=== PATIENT | female | born 1960 | race Caucasian/White ===

== ENCOUNTER 2018-05-07 15:49 | Emergency (ER) | payer BC, OTHER ==
[2018-05-07 15:57] VITALS: RESP 20
[2018-05-07] MEDS ORDERED: ONDANSETRON 4 MG/2 ML VIAL IVP STA ×2 (16:05→17:56)
[2018-05-07] MEDS ORDERED: MORPHINE SULFATE 4 MG/ML SYRINGE IV STA (16:05)
[2018-05-07] MEDS ORDERED: SODIUM CHLORIDE 0.9% 1,000 ML IV STA ×2 (16:05)
[2018-05-07] MEDS ORDERED: SODIUM CHLORIDE 0.9% 500 ML 500 ML IV STA (16:05)
--- NOTE | 2018-05-07 16:08 | ED ---
Abdominal Pain HPI - General Chief Complaint: Abdominal Pain Stated Complaint: back pain/vomiting Time Seen by Provider: 05/07/18 16:05 Source: patient, RN notes reviewed, old records reviewed Mode of arrival: ambulatory Limitations: no limitations - History of Present Illness Initial Comments: This is a 58-year-old female the ER for evaluation. Patient resents today for evaluation of abdominal pain back pain and vomiting. No diarrhea. No fevers no cough or congestion no travel history no known sick contacts. Patient did recently have surgery on her left wrist. Denies any fevers. No other known sick contacts. She is taking pain medication at home for sinuses and unable to keep it down secondary to the nauseousness. No other history of surgery on the abdomen is stones. - Related Data Home Medications Medication Instructions Recorded Confirmed HYDROcodone/APAP 10-325MG [Hinkley 1 tab PO Q6H PRN 05/07/18 05/07/18 10-325] Levothyroxine Sodium [Synthroid] 50 mcg PO DAILY 05/07/18 05/07/18 Meloxicam [Mobic] 15 mg PO DAILY 05/07/18 05/07/18 buPROPion HCL [Wellbutrin XL] 300 mg PO DAILY 05/07/18 05/07/18 Previous Rx's Medication Instructions Recorded Ondansetron Odt [Zofran ODT] 4 mg PO Q8HR PRN #10 tab 05/07/18 Allergies Allergy/AdvReac Type Severity Reaction Status Date / Time No Known Allergies Allergy Verified 05/07/18 16:45 Review of Systems ROS Statement: Those systems with pertinent positive or pertinent negative responses have been documented in the HPI. ROS Other: All systems not noted in ROS Statement are negative. Past Medical History Past Medical History: No Reported History History of Any Multi-Drug Resistant Organisms: None Reported Past Surgical History: Back Surgery Additional Past Surgical History / Comment(s): hand surgery. Past Psychological History: No Psychological Hx Reported Smoking Status: Never smoker Past Alcohol Use History: None Reported Past Drug Use History: None Reported General Exam Limitations: no limitations General appearance: alert, in no apparent distress Head exam: Present: atraumatic, normocephalic, normal inspection Eye exam: Present: normal appearance, PERRL, EOMI. Absent: scleral icterus, conjunctival injection, periorbital swelling ENT exam: Present: normal exam, mucous membranes moist Neck exam: Present: normal inspection. Absent: tenderness, meningismus, lymphadenopathy Respiratory exam: Present: normal lung sounds bilaterally. Absent: respiratory distress, wheezes, rales, rhonchi, stridor Cardiovascular Exam: Present: regular rate, normal rhythm, normal heart sounds. Absent: systolic murmur, diastolic murmur, rubs, gallop, clicks GI/Abdominal exam: Present: soft, normal bowel sounds. Absent: distended, tenderness, guarding, rebound, rigid Extremities exam: Present: normal inspection, full ROM, normal capillary refill. Absent: tenderness, pedal edema, joint swelling, calf tenderness Back exam: Present: normal inspection Neurological exam: Present: alert, oriented X3, CN II-XII intact Psychiatric exam: Present: normal affect, normal mood Skin exam: Present: warm, dry, intact, normal color. Absent: rash Course Vital Signs 05/07/18 05/07/18 05/07/18 15:52 16:56 18:00 Temperature 97.8 F 98.3 F Pulse Rate 85 88 55 L Respiratory 20 20 20 Rate Blood Pressure 106/71 135/73 153/82 O2 Sat by Pulse 99 99 99 Oximetry 05/07/18 19:00 Temperature 98.1 F Pulse Rate 61 Respiratory 20 Rate Blood Pressure 149/82 O2 Sat by Pulse 97 Oximetry - Reevaluation(s) Reevaluation #1: Medical record is reviewed Patient does have adequate pain control Medical Decision Making - Medical Decision Making 58 female the ER for evaluation, this patient presents today for evaluation regarding nausea or vomiting. Nausea vomiting is improved currently, pain is controlled. Patient can be discharged home - Lab Data Result diagrams: 05/07/18 16:20 05/07/18 16:20 Lab Results 05/07/18 05/07/18 05/07/18 Range/Units 16:20 16:20 16:20 WBC 5.9 (3.8-10.6) k/uL RBC 5.11 (3.80-5.40) m/uL Hgb 13.8 (11.4-16.0) gm/dL Hct 42.9 (34.0-46.0) % MCV 84.1 (80.0-100.0) fL MCH 27.1 (25.0-35.0) pg MCHC 32.2 (31.0-37.0) g/dL RDW 13.2 (11.5-15.5) % Plt Count 336 (150-450) k/uL Neutrophils % 75 % Lymphocytes % 16 % Monocytes % 5 % Eosinophils % 1 % Basophils % 1 % Neutrophils # 4.4 (1.3-7.7) k/uL Lymphocytes # 1.0 (1.0-4.8) k/uL Monocytes # 0.3 (0-1.0) k/uL Eosinophils # 0.0 (0-0.7) k/uL Basophils # 0.0 (0-0.2) k/uL PT (9.0-12.0) sec INR (<1.2) APTT (22.0-30.0) sec Sodium 137 (137-145) mmol/L Potassium 3.7 (3.5-5.1) mmol/L Chloride 104 (98-107) mmol/L Carbon Dioxide 21 L (22-30) mmol/L Anion Gap 12 mmol/L BUN 22 H (7-17) mg/dL Creatinine 0.56 (0.52-1.04) mg/dL Est GFR (CKD-EPI)AfAm >90 (>60 ml/min/1.73 sqM) Est GFR (CKD-EPI)NonAf >90 (>60 ml/min/1.73 sqM) Glucose 165 H (74-99) mg/dL Lactic Ac Sepsis Rflx Plasma Lactic Acid Kevin 2.2 H* (0.7-2.0) mmol/L Calcium 10.6 H (8.4-10.2) mg/dL Total Bilirubin 1.2 (0.2-1.3) mg/dL AST 23 (14-36) U/L ALT 36 (9-52) U/L Alkaline Phosphatase 116 (38-126) U/L Total Protein 7.9 (6.3-8.2) g/dL Albumin 4.6 (3.5-5.0) g/dL Amylase 86 (30-110) U/L Lipase 115 (23-300) U/L Urine Color Urine Appearance (Clear) Urine pH (5.0-8.0) Ur Specific [place] (1.001-1.035) Urine Protein (Negative) Urine Glucose (UA) (Negative) Urine Ketones (Negative) Urine Blood (Negative) Urine Nitrite (Negative) Urine Bilirubin (Negative) Urine Urobilinogen (<2.0) mg/dL Ur Leukocyte Esterase (Negative) Urine WBC (0-5) /hpf Ur Squamous Epith Cells (0-4) /hpf Urine Mucus (None) /hpf Blood Type Blood Type Confirm Blood Type Recheck Antibody Screen Spec Expiration Date 05/07/18 05/07/18 05/07/18 Range/Units 16:20 16:20 16:30 WBC (3.8-10.6) k/uL RBC (3.80-5.40) m/uL Hgb (11.4-16.0) gm/dL Hct (34.0-46.0) % MCV (80.0-100.0) fL MCH (25.0-35.0) pg MCHC (31.0-37.0) g/dL RDW (11.5-15.5) % Plt Count (150-450) k/uL Neutrophils % % Lymphocytes % % Monocytes % % Eosinophils % % Basophils % % Neutrophils # (1.3-7.7) k/uL Lymphocytes # (1.0-4.8) k/uL Monocytes # (0-1.0) k/uL Eosinophils # (0-0.7) k/uL Basophils # (0-0.2) k/uL PT 10.2 (9.0-12.0) sec INR 1.0 (<1.2) APTT 22.3 (22.0-30.0) sec Sodium (137-145) mmol/L Potassium (3.5-5.1) mmol/L Chloride (98-107) mmol/L Carbon Dioxide (22-30) mmol/L Anion Gap mmol/L BUN (7-17) mg/dL Creatinine (0.52-1.04) mg/dL Est GFR (CKD-EPI)AfAm (>60 ml/min/1.73 sqM) Est GFR (CKD-EPI)NonAf (>60 ml/min/1.73 sqM) Glucose (74-99) mg/dL Lactic Ac Sepsis Rflx Plasma Lactic Acid Kevin (0.7-2.0) mmol/L Calcium (8.4-10.2) mg/dL Total Bilirubin (0.2-1.3) mg/dL AST (14-36) U/L ALT (9-52) U/L Alkaline Phosphatase (38-126) U/L Total Protein (6.3-8.2) g/dL Albumin (3.5-5.0) g/dL Amylase (30-110) U/L Lipase (23-300) U/L Urine Color Yellow Urine Appearance Cloudy H (Clear) Urine pH 8.5 H (5.0-8.0) Ur Specific [place] 1.015 (1.001-1.035) Urine Protein 2+ H (Negative) Urine Glucose (UA) Negative (Negative) Urine Ketones 2+ H (Negative) Urine Blood Negative (Negative) Urine Nitrite Negative (Negative) Urine Bilirubin Negative (Negative) Urine Urobilinogen <2.0 (<2.0) mg/dL Ur Leukocyte Esterase Negative (Negative) Urine WBC 4 (0-5) /hpf Ur Squamous Epith Cells 24 H (0-4) /hpf Urine Mucus Many H (None) /hpf Blood Type O Positive Blood Type Confirm Blood Type Recheck CABO Indicated Antibody Screen NEGATIVE Spec Expiration Date 05/10/2018231905/07/18 05/07/18 Range/Units 16:56 17:21 WBC (3.8-10.6) k/uL RBC (3.80-5.40) m/uL Hgb (11.4-16.0) gm/dL Hct (34.0-46.0) % MCV (80.0-100.0) fL MCH (25.0-35.0) pg MCHC (31.0-37.0) g/dL RDW (11.5-15.5) % Plt Count (150-450) k/uL Neutrophils % % Lymphocytes % % Monocytes % % Eosinophils % % Basophils % % Neutrophils # (1.3-7.7) k/uL Lymphocytes # (1.0-4.8) k/uL Monocytes # (0-1.0) k/uL Eosinophils # (0-0.7) k/uL Basophils # (0-0.2) k/uL PT (9.0-12.0) sec INR (<1.2) APTT (22.0-30.0) sec Sodium (137-145) mmol/L Potassium (3.5-5.1) mmol/L Chloride (98-107) mmol/L Carbon Dioxide (22-30) mmol/L Anion Gap mmol/L BUN (7-17) mg/dL Creatinine (0.52-1.04) mg/dL Est GFR (CKD-EPI)AfAm (>60 ml/min/1.73 sqM) Est GFR (CKD-EPI)NonAf (>60 ml/min/1.73 sqM) Glucose (74-99) mg/dL Lactic Ac Sepsis Rflx Y Plasma Lactic Acid Kevin (0.7-2.0) mmol/L Calcium (8.4-10.2) mg/dL Total Bilirubin (0.2-1.3) mg/dL AST (14-36) U/L ALT (9-52) U/L Alkaline Phosphatase (38-126) U/L Total Protein (6.3-8.2) g/dL Albumin (3.5-5.0) g/dL Amylase (30-110) U/L Lipase (23-300) U/L Urine Color Urine Appearance (Clear) Urine pH (5.0-8.0) Ur Specific [place] (1.001-1.035) Urine Protein (Negative) Urine Glucose (UA) (Negative) Urine Ketones (Negative) Urine Blood (Negative) Urine Nitrite (Negative) Urine Bilirubin (Negative) Urine Urobilinogen (<2.0) mg/dL Ur Leukocyte Esterase (Negative) Urine WBC (0-5) /hpf Ur Squamous Epith Cells (0-4) /hpf Urine Mucus (None) /hpf Blood Type Blood Type Confirm O Positive Blood Type Recheck Antibody Screen Spec Expiration Date - Radiology Data Radiology results: report reviewed (CT abdomen pelvis is negative for acute disease), image reviewed Disposition Clinical Impression: Abdominal pain Disposition: HOME SELF-CARE Condition: Good Instructions (If sedation given, give patient instructions): Abdominal Pain (ED ) Prescriptions: Ondansetron Odt [Zofran ODT] 4 mg PO Q8HR PRN #10 tab PRN Reason: nausea/vomiting Is patient prescribed a controlled substance at d/c from ED?: No Referrals: Erick Bruce DO [Primary Care Provider] - 1-2 days
[2018-05-07 16:39] LABS: Basophils % (A) 1 %; Eosinophils % (A) 1 %; HCT 42.9 % (34.0-46.0); HGB 13.8 gm/dL (11.4-16.0); Lymphocytes % (A) 16 %; MCH 27.1 pg (25.0-35.0); MCHC 32.2 g/dL (31.0-37.0); MCV 84.1 fL (80.0-100.0); Mean Platelet Volume 6.9; Monocytes # (A) 0.3 k/uL (0-1.0); Monocytes % (A) 5 %; Neutrophils # (A) 4.4 k/uL (1.3-7.7); Neutrophils % (A) 75 %; Platelet Count 336 k/uL (150-450); RBC 5.11 m/uL (3.80-5.40); RDW 13.2 % (11.5-15.5); WBC 5.9 k/uL (3.8-10.6)
[2018-05-07 16:46] LABS: ALT 36 U/L (9-52); AST 23 U/L (14-36); Albumin 4.6 g/dL (3.5-5.0); Alkaline Phosphatase 116 U/L (38-126); Amylase 86 U/L (30-110); Anion Gap 12 mmol/L; Blood Urea Nitrogen 22 mg/dL (7-17); Calcium 10.6 mg/dL (8.4-10.2); Carbon Dioxide 21 mmol/L (22-30); Chloride 104 mmol/L (98-107); Glucose 165 mg/dL (74-99); Lipase 115 U/L (23-300); Potassium 3.7 mmol/L (3.5-5.1); Sodium 137 mmol/L (137-145); Total Bilirubin 1.2 mg/dL (0.2-1.3); Total Protein 7.9 g/dL (6.3-8.2)
[2018-05-07 16:51] LABS: Partial Thromboplastin Time 22.3 sec (22.0-30.0); Prothrombin Time 10.2 sec (9.0-12.0)
[2018-05-07 17:08] LABS: Appearance,Urine Cloudy (Clear); Bilirubin,Urine Negative (Negative); Blood,Urine Negative (Negative); Color,Urine Yellow; Glucose,Urine (UA) Negative (Negative); Ketones,Urine 2+ (Negative); Leukocyte Esterase,Urine Negative (Negative); Mucus,Urine Many /hpf; Nitrite,Urine Negative (Negative); PH, Urine 8.5 (5.0-8.0); Protein,Urine 2+ (Negative); Specific Gravity,Urine 1.015 (1.001-1.035); Squamous Epithelial Cell,Urine 24 /hpf (0-4); Urobilinogen,Urine <2.0 mg/dL (<2.0); WBC,Urine 4 /hpf (0-5)
--- NOTE | 2018-05-07 17:25 | CT ---
EXAMINATION TYPE: CT abdomen pelvis w con DATE OF EXAM: 05/07/2018 COMPARISON: None HISTORY: LLQ pain, nausea, vomiting. CT DLP: 496.2 mGycm Automated exposure control for dose reduction was used. TECHNIQUE: Helical acquisition of images was performed from the lung bases through the pelvis. CONTRAST: Performed without Oral Contrast and with IV Contrast, patient injected with 100 mL of Isovue 300. Lung bases are clear of consolidation. There is no pleural effusion. There is small hiatal hernia. Th ere are clips at the gastroesophageal junction. Heart size is normal. There is no pericardial effusio n. Gallbladder has normal size. The bile ducts are not dilated. There is no evidence of a splenic mas s. There is no evidence of pancreatic mass. There is no adrenal mass. Kidneys show satisfactory contrast opacification. There is no hydronephrosi s. There is no retroperitoneal adenopathy. There is disc prosthesis at L5-S1. I see no focal bone eden truction. Bladder distends smoothly. There is no free fluid in the pelvis. There is no evidence of fr ee air. There is no inguinal hernia. There is no sign of a pelvic mass. Hysterectomy is noted. There is no sign of ascites. There is no evidence of a bowel obstruction. Appendix is not definitely seen. There is no sign of appendicitis. I see no intestinal wall thickening. There is no sign of a bowel ob struction. There is no mesenteric edema. IMPRESSION: BARIATRIC SURGERY. NO SIGN OF ACUTE ABDOMEN AND PELVIS.
[2018-05-07] MEDS ORDERED: DIAZEPAM 5 MG/ML 2 ML INJ IVP STA (17:56)
[2018-05-07] MEDS ORDERED: MORPHINE SULFATE 4 MG/ML SYRINGE IVP STA (17:56)
[2018-05-07 19:23] VITALS: BP 149/82; PULSE 61; TEMP 98.1
== END 2018-05-07 19:00 | disposition home or self-care (01) ==
LOC: EC 15:49
DX: R10.9 Unspecified abdominal pain (principal); M54.9 Dorsalgia, unspecified; R11.2 Nausea with vomiting, unspecified; Z98.890 Other specified postprocedural states; Z79.890 Hormone replacement therapy; Z79.1 Long term (current) use of non-steroidal anti-inflammatories (NSAID); Z79.899 Other long term (current) drug therapy
CPT/HCPCS: 36415; 86900; 86901; 80053; 82150; 83605; 83690; 85025; 85610; 85730; 86850; 81001; 87086; 74177; 99285; 96374; 96375 ×2; 96376 ×2; 96361 ×2; J2270; J3360; J2405; Q9967

== ENCOUNTER → 2019-01-26 | Outpatient (CLI) | payer BC ==
--- NOTE | 2019-01-26 20:52 | MR ---
EXAMINATION TYPE: MR lumbar spine wo/w con DATE OF EXAM: 01/26/2019 COMPARISON: None HISTORY: PAIN AND NUMBNESS IN BACK, HIPS, LEGS AND FEET X3 MONTHS, 5.5ML GIVEN CONTRAST: 5.5ML mL intravenous Gadavist. TECHNIQUE: Multiplanar, multisequence images of the lumbar spine were acquired. FINDINGS: Cord terminates at the L1 level. L5-S1: Postsurgical changes are at the L5-S1 level. Disc spacers utilize causing magnetic susceptibil ity artifact. Significant thecal sac compression is not identified. Neural foramen are patent. L4-L5: Mild disc bulge is present with anterior thecal sac compression. No AP spinal canal stenosis p resent. Neural foramen are patent. Left facet hypertrophy is present L3-L4: Facet hypertrophy is present with ligamentum flavum laxity. This has posterior lateral thecal sac compression. Broad-based disc bulge has moderate intrathecal sac compression. These are contribut ing to spinal canal stenosis. L2-L3: Facet hypertrophy is mild posterior lateral thecal sac compression on the right. Mild disc bul ging the anterior thecal sac contact. No spinal canal stenosis is present. Neural foramen are patent L1-L2: No significant disc bulge or disc herniation. No spinal canal stenosis. No foraminal stenosi s. Posterior lateral thecal sac compression from facet hypertrophy and ligamentum flavum laxity is p resent, greater on the left.. T12-L1: No significant disc bulge or disc herniation. No spinal canal stenosis. No foraminal stenos is. . No abnormal enhancement. IMPRESSION: 1. Spinal canal stenosis L3-L4 secondary to facet hypertrophy and ligamentum flavum laxity and broad- based moderate disc bulging. 2. Disc bulging with mild anterior thecal sac compression at L4-5. 3. Postsurgical changes L5-S1 disc level
== END ==
LOC: RADMRIMAIN 15:36
PROVIDERS: ATTEND Family Medicine
DX: M48.062 Spinal stenosis, lumbar region with neurogenic claudication (principal); M51.26 Other intervertebral disc displacement, lumbar region; Z98.890 Other specified postprocedural states
CPT/HCPCS: 72158; A9585

== ENCOUNTER → 2019-09-17 | Outpatient (CLI) | payer BC ==
[2019-09-17 12:59] LABS: Appearance,Urine Clear (Clear); Bilirubin,Urine Negative (Negative); Blood,Urine Negative (Negative); Color,Urine Light Yellow; Glucose,Urine (UA) Negative (Negative); Ketones,Urine Negative (Negative); Leukocyte Esterase,Urine Negative (Negative); Nitrite,Urine Negative (Negative); Protein,Urine Negative (Negative); Specific Gravity,Urine 1.003 (1.001-1.035); Urobilinogen,Urine <2.0 mg/dL (<2.0)
--- NOTE | 2019-09-17 14:05 | XR ---
EXAMINATION TYPE: XR chest 2V DATE OF EXAM: 09/17/2019 COMPARISON: None HISTORY: 59-year-old female presurgical testing TECHNIQUE: Frontal and lateral views FINDINGS: The cardiomediastinal silhouette, aorta, and pulmonary vasculature are within normal limits. Mild hyp erinflation. Lungs and pleural spaces are clear. IMPRESSION: Mild hyperinflation may relate to depth of inspiration or underlying emphysema. Clinically correlate. Otherwise, no acute cardiopulmonary process.
== END | disposition home or self-care (01) ==
LOC: LABPAT 12:02
PROVIDERS: ATTEND Orthopaedic Surgery Orthopaedic Surgery of the Spine
DX: Z01.818 Encounter for other preprocedural examination (principal); D50.9 Iron deficiency anemia, unspecified; E03.9 Hypothyroidism, unspecified; Z01.812 Encounter for preprocedural laboratory examination; M43.10 Spondylolisthesis, site unspecified
CPT/HCPCS: 71046; 81003; 87070

== ENCOUNTER → 2019-09-18 | Outpatient (CLI) | payer BC ==
[2019-09-18 08:00] LABS: Basophils % (A) 1 %; Eosinophils # (A) 0.2 k/uL (0-0.7); Eosinophils % (A) 4 %; HCT 37.9 % (34.0-46.0); HGB 12.1 gm/dL (11.4-16.0); Lymphocytes # (A) 1.4 k/uL (1.0-4.8); Lymphocytes % (A) 38 %; MCH 27.1 pg (25.0-35.0); MCHC 31.8 g/dL (31.0-37.0); MCV 85.2 fL (80.0-100.0); Mean Platelet Volume 7.1; Monocytes # (A) 0.3 k/uL (0-1.0); Monocytes % (A) 7 %; Neutrophils # (A) 1.7 k/uL (1.3-7.7); Neutrophils % (A) 46 %; Platelet Count 237 k/uL (150-450); RBC 4.45 m/uL (3.80-5.40); RDW 13.2 % (11.5-15.5); WBC 3.7 k/uL (3.8-10.6)
[2019-09-18 08:10] LABS: INR 0.9 (<1.2); Partial Thromboplastin Time 26.2 sec (22.0-30.0); Prothrombin Time 9.9 sec (9.0-12.0)
[2019-09-18 08:15] LABS: ALT 24 U/L (4-34); AST 37 U/L (14-36); African American GFR (CKD) >90 (>60 ml/min/1.73 sqM); Alkaline Phosphatase 84 U/L (38-126); Anion Gap 3 mmol/L; Blood Urea Nitrogen 19 mg/dL (7-17); Carbon Dioxide 29 mmol/L (22-30); Chloride 103 mmol/L (98-107); Glucose 97 mg/dL (74-99); Non-African American GFR(CKD) >90 (>60 ml/min/1.73 sqM); Potassium 4.4 mmol/L (3.5-5.1); Sodium 135 mmol/L (137-145); Total Bilirubin 0.6 mg/dL (0.2-1.3); Total Protein 6.8 g/dL (6.3-8.2)
[2019-09-18 19:57] LABS: Iron 62 ug/dL (50-170)
[2019-09-18 20:12] LABS: Ferritin 7.7 ng/mL (10.0-291.0)
== END | disposition home or self-care (01) ==
LOC: LABPAT 07:04
PROVIDERS: ATTEND Orthopaedic Surgery Orthopaedic Surgery of the Spine
DX: Z01.818 Encounter for other preprocedural examination (principal); M43.10 Spondylolisthesis, site unspecified; E03.9 Hypothyroidism, unspecified; D50.9 Iron deficiency anemia, unspecified
CPT/HCPCS: 36415; 80053; 82728; 83540; 84443; 85025; 85610; 85730

== ENCOUNTER 2019-09-30 05:55 | Inpatient (IN) | payer BC ==
[2019-09-28 08:56] VITALS: BMI 21.2
[~2019-09-30 05:55] MED LIST: DEXAMETHASONE SOD PHOSPHATE 10 MG/ML 1 ML VIAL IV ONE; LACTATED RINGERS 1,000 ML IV SCH; ONDANSETRON 4 MG/2 ML VIAL IVP ONE
[2019-09-30] MEDS ORDERED: ceFAZolin 1,000 MG in SODIUM CHLORIDE 0.9% IRRIGATIO 1,000 ML IRRIGATION ONE (06:00)
[2019-09-30] MEDS ORDERED: ONDANSETRON 4 MG/2 ML VIAL ONE ×2 (06:55→07:28)
[2019-09-30] MEDS ORDERED: LIDOCAINE 1% (10MG/ML) FOR IV START INTRADERMA ONE (06:58)
[2019-09-30] MEDS ORDERED: METOCLOPRAMIDE 5 MG/ML 2 ML VIAL ONE (07:03)
[2019-09-30] MEDS ORDERED: METOCLOPRAMIDE 5 MG/ML 2 ML VIAL IVP ONE (07:05)
[2019-09-30] MEDS ORDERED: SUCCINYLCHOLINE CHLORIDE 100 MG/5 ML SYR IV ONE (07:28)
[2019-09-30] MEDS ORDERED: PHENYLEPHRINE-0.9% NACL SYG 1 MG/10 ML SYRINGE ONE (07:28)
[2019-09-30] MEDS ORDERED: ePHEDrine SULFATE/0.9% NACL/PF 50 MG/5 ML SYRINGE IV ONE (07:28)
[2019-09-30] MEDS ORDERED: ROCURONIUM BROMIDE 10 MG/ML 5 ML VIAL IV ONE (07:28)
[2019-09-30] MEDS ORDERED: MIDAZOLAM 2 MG/2 ML VIAL ONE (07:28)
[2019-09-30] MEDS ORDERED: fentaNYL (PF) 50 MCG/ML 2 ML AMP ONE (07:28)
[2019-09-30] MEDS ORDERED: LIDOCAINE 1% INJ 10MG/ML (20 ML MDV) ONE (07:28)
[2019-09-30] MEDS ORDERED: PROPOFOL 10 MG/ML 20 ML VIAL IV ONE (07:28)
[2019-09-30] MEDS ORDERED: BUPIVACAINE (PF) 0.25% 30 ML VIAL SQ ONE (08:19)
[2019-09-30] MEDS ORDERED: THROMBIN (BOVINE) 5,000 UNIT VIAL TOPICAL ONE (08:19)
[2019-09-30] MEDS ORDERED: GELATIN SPONGE,ABSORB (LARGE) 1 EACH SPONGE TOPICAL ONE (08:19)
[2019-09-30] MEDS ORDERED: LACTATED RINGERS 1,000 ML IV ONE ×2 (08:20→10:02)
[2019-09-30] MEDS ORDERED: ceFAZolin 1,000 MG in SODIUM CHLORIDE 0.9% 1,000 ML IRRIGATION ONE (08:32)
[2019-09-30] MEDS ORDERED: HYDROcodone/APAP 5-325MG 1 EACH TAB PO PRN (11:26)
[2019-09-30] MEDS ORDERED: MAGNESIUM HYDROXIDE 2,400 MG/10 ML CUP PO PRN (11:26)
[2019-09-30] MEDS ORDERED: HYDROmorphone 0.5 MG/0.5 ML SYRINGE IVP PRN (11:26)
[2019-09-30] MEDS ORDERED: BENZOCAINE/MENTHOL LOZENG 1 EACH LOZENGE MUCOUS MEM PRN (11:26)
--- NOTE | 2019-09-30 11:35 | P.OP ---
Date of Procedure: 09/30/19 Preoperative Diagnosis: Severe spinal stenosis L3 4 L4 5, spondylolisthesis L3 4, history of prior fusion at L5-S1, history of prior laminectomy and decompression L4 5 L5-S1, low back pain, lower extremity radiculopathy, neurogenic claudication, degenerative disc disease, facet arthrosis Postoperative Diagnosis: Same Anesthesia: GETA Pathology: none sent Condition: stable Disposition: PACU Description of Procedure: DESCRIPTION OF PROCEDURE(S): BRIEF OPERATIVE NOTE Preoperative Diagnosis: Severe spinal stenosis L3 4 L4 5, spondylolisthesis L3 4, history of prior fusion at L5-S1, history of prior laminectomy and decompression L4 5 L5-S1, low back pain, lower extremity radiculopathy, neurogenic claudication, degenerative disc disease, facet arthrosis Postoperative Diagnosis: Same Procedure: Laminectomy decompression with wide bilateral foraminotomies L3 4 Revision Laminectomy and decompression L4 5 Computer navigation aided Minimally invasive Posterior lateral decompression and fusion L3 4 L4 5 Minimally invasive Transforaminal lumbar interbody fusion for a 360 fusion L3 4 L4 5 Discectomy for decompression L3 4 L4 5 Placement of interbody graft L3 4 L4 5 Use of computer navigation for fusion L3 4 5 Local autogenous bone grafting Aspiration of bone marrow from the pedicle of L3 Use of bone graft extenders Surgeon: Dr. Cor[employer] Supervisor: Lyndon CARCAMO who is present throughout the entire the case persistence during positioning, dissection, exposure, visualization, and all crucial elements of the case as well as closure. Anesthesia: General anesthesia per Dr. Bergeron Estimated blood loss: Approximately 600 mL with 275 given back through Cell [employer] Complications: None apparent Components implanted: K2M minimally invasive Abell pedicle screw system withscrews measuring 6.5 mm in diameter to rods one Bellflower interbody cage with 10 mL of osteo amp bio4 bone graft substitute and 30 mL of the BX bone fibers to supplement the local autogenous bone graft and bone marrow aspirate Disposition: To recovery room in good stable condition. OPERATIVE INDICATIONS The patient has had severe issues at their lower extremity in her lower back over the past several months. She has a long history of lumbar issues and in the past is undergone laminectomy at L4 5 and L5-S1 and anterior interbody fusion at L5-S1. Over the past few months however the patient had recurrence of her pain at her back and her right lower extremity. She is having severe radicular symptoms at her right lower extremity with weakness. She is unable to obtain any comfort. We did aggressive conservative treatment with medications therapy and interventional pain management however she was not having any relief. Her imaging showed severe spinal stenosis particularly at L3 4 but also at L4 5. She also showed evidence of a listhesis at L3 4 with some dynamic instability. The patient has been through conservative treatment. We discussed various treatment options including surgery, and the patient wishes to proceed with surgery We discussed the risk, patient's alternatives and benefits of surgery including but not limited to, risk of bleeding risk of infection, risk of need for further surgery, risk of decreased, loss of motion, muscle function, malunion nonunion, hardware failure, nerve damage, paralysis, heart attack, blindness and . She understood issues with the current pandemic and the possibility of exposure. OPERATIVE SUMMARY After discussing all the risks, patient alternatives and benefits at length, the patient elected to proceed with surgical intervention, signed informed consent, and presented for their procedure. The patient was seen and examined in the preoperative holding area and the surgical site was marked. The patient was given antibiotics and brought to the operating room. The patient was sedated and intubated by anesthesia in standard fashion. The patient was positioned on to the operating room table in a prone position on the appropriate frame which was well-padded and well molded. We were careful to pad any bony prominences and pressure points. We were careful to maintain the patient's cervical spine and good neutral alignment and position throughout. The patient was prepped and draped in a normal standard fashion. An appropriate timeout and keystone protocol performed. We were able to proceed with the surgery. The local wound area was infiltrated with local anesthetic. I was able utilize C-arm guidance to establish appropriate position over the pedicles bilaterally at the appropriate levels at L3 4 and 5 . With the appropriate levels confirmed was able to make small stab incisions over the appropriate pedicle sites bilaterally. Utilizing C-arm in the computer navigation device I was able to establish bony landmarks at the right iliac crest for a bony reference point for the navigation device. I was able to establish a Jamshidi needle over the lateral aspect of the pedicle and advanced the trocar into the pedicle being careful not to breech superiorly inferiorly medially or laterally using computer navigation device. Position was confirmed regularly with AP and lateral images on C-arm and with the computer navigation device. I was able to establish the trocar into the pedicle appropriately into the posterior aspect of the vertebral body bilaterally at the appropriate levels of L3 4 and 5 bilaterally. This was done at each of the pedicle positions and each of the vertebrae. At L3 on the right with history of prostate 20 mL of bone marrow aspirate for use later in the case to supplemental local autogenous bone graft and bone graft supplement. I was able place the guidewire into the trocar and into the vertebral body appropriately under C-arm guidance. Dissection was taken down over the wire to the appropriate starting position for the screw placed. The appropriate length screw was chosen, threaded over the guidewire and screwed appropriately into the pedicle and vertebral body under C- arm guidance in excellent alignment and position with good bony purchase. This is done at each of the screw sites at the appropriate levels at L3 4 and 5. With the screws intact I extended the incision to connect the screw hole sites on the left. I dissected down to establish access over the pars and lamina to the base of the spinous process. I was able to expose the facet joint. The capsule the facet was taken down and showed some facet arthrosis at the joint. I was able to use a combination of curettes and Kerrison rongeurs and a high- speed drill to take down the facet joint and do a facetectomy. I was able get excellent foraminal decompression and central decompression with undermining across midline to perform a laminectomy centrally and contralaterally. As able get good central decompression. There had been severe central and bilateral foraminal stenosis L3 4 and L4 5 particularly at L3 4. I was able get excellent decompression. The ligamentum flavum was taken down to further decompress centrally and at bilateral neural foramen. I was able to expose the disc space and visualize the traversing nerve root. Note was made of some scar tissue formation and prior laminectomy at L4 5. I had to take down some scar tissue and revision decompression at that level. Note was made of some disc protrusion and disc herniation that was adherent to the traversing nerve root at the level causing further compression of the nerve root. I was able to establish a annulotomy at the appropriate level protecting soft tissue and neural structures. Note was made of some disc desiccation at the disc and evidence of the prior discectomy. I performed a complete discectomy with accommodation of curettes and rasps and scrapers. I was able get good endplate preparation at the disc space. I sized for the appropriate size interbody spacer protecting the soft tissue and neural structures. The wound was copiously irrigated and suctioned dry. There is no evidence of any dural tear or leak. I was able to pack the disc space with local autogenous bone graft as well as a small amount of bone graft which was also placed into the interbody cage itself. Protecting the soft tissue structures and neural structures I was able place the interbody cage in good alignment and good position with good fit and fill at the interbody space. His issues was confirmed with C-arm guidance. Good hemostasis maintained. There is no evidence of any dural tear or leak. The wound was irrigated and suctioned dry. With the hardware intact, intraoperative C-arm imaging was again taken which showed good alignment and position of the hardware at the appropriate levels at L3 4 and 5. We were then able to measure, contour and place the rods and appropriate hardware bilaterally. I was able to place capcrews, tighten them down, and torque them with the torque screwdriver appropriately. With this intact I was able to place the local autogenous bone graft with additional bone graft enhancer as necessary into the posterior lateral gutters over the decorticated transverse processes and facet joints on the contralateral side. The remainder of the bone graft was placed over the facet joint on the contralateral side after taking down the facet joint capsule. With the bone graft intact, a stable construct, and good decompression at the appropriate levels, we were able to proceed with closure. Good hemostasis was maintained. There is no evidence of dural tear or leak. The fascia was closed for a watertight closure. he subcuticular tissue was closed with absorbable suture. The wound was cleaned and dried and dressed with the appropriate dressing. The drapes were broken down. The patient was gently rolled back onto their hospital bed being careful to maintain their cervical spine and good neutral alignment and position. They were woken up by anesthesia, extubated, and brought to the recovery room in good stable condition. The patient will be admitted to the hospital for appropriate postoperative care, medical management and monitoring. We will continue to follow them closely about the postoperative course.
[2019-09-30] MEDS: HYDROmorphone 0.5 MG/0.5 ML SYRINGE IVP PRN ×4 (11:55→12:28)
[2019-09-30] MEDS ORDERED: SODIUM CHLORIDE 0.9% 1,000 ML IV ONE ×2 (12:25)
--- NOTE | 2019-09-30 12:26 | FL ---
Fluoroscopy HISTORY: Lumbar fusion 24 seconds fluoroscopy time supplied to the referring clinician. 6 intraoperative C-arm images docum ent the procedure. See dictated report from orthopedic surgery.
--- NOTE | 2019-09-30 12:26 | XR ---
Limited lumbar spine HISTORY: Lumbar fusion 6 intraoperative C-arm images document the procedure
[2019-09-30] MEDS: SODIUM CHLORIDE 0.9% 1,000 ML IV SCH (14:25)
[2019-09-30] MEDS: HYDROmorphone 1 MG/ML 1 ML SYRINGE IVP PRN ×3 (14:26→23:35)
[2019-09-30] MEDS: ONDANSETRON 4 MG/2 ML VIAL IVP PRN ×2 (15:17→22:20)
[2019-09-30] MEDS: HYDROcodone/APAP 5-325MG 1 EACH TAB PO PRN ×2 (17:26→22:22)
[2019-10-01] MEDS: SODIUM CHLORIDE 0.9% 1,000 ML IV SCH ×3 (00:50→21:40)
[2019-10-01] MEDS: HYDROmorphone 1 MG/ML 1 ML SYRINGE IVP PRN ×5 (03:26→23:12)
[2019-10-01] MEDS: HYDROcodone/APAP 5-325MG 1 EACH TAB PO PRN ×4 (04:40→19:48)
[2019-10-01] MEDS: LEVOTHYROXINE 50 MCG TAB PO SCH (05:16)
[2019-10-01 06:48] LABS: Basophils % (A) 0 %; Eosinophils % (A) 0 %; HCT 30.1 % (34.0-46.0); Lymphocytes # (A) 0.9 k/uL (1.0-4.8); Lymphocytes % (A) 17 %; MCH 27.4 pg (25.0-35.0); MCHC 31.8 g/dL (31.0-37.0); MCV 86.1 fL (80.0-100.0); Mean Platelet Volume 6.9; Monocytes # (A) 0.4 k/uL (0-1.0); Monocytes % (A) 8 %; Neutrophils # (A) 3.9 k/uL (1.3-7.7); Neutrophils % (A) 74 %; Platelet Count 234 k/uL (150-450); RBC 3.49 m/uL (3.80-5.40); RDW 13.5 % (11.5-15.5); WBC 5.2 k/uL (3.8-10.6)
[2019-10-01 06:54] LABS: African American GFR (CKD) >90 (>60 ml/min/1.73 sqM); Anion Gap 0 mmol/L; Blood Urea Nitrogen 14 mg/dL (7-17); Calcium 8.3 mg/dL (8.4-10.2); Carbon Dioxide 27 mmol/L (22-30); Chloride 108 mmol/L (98-107); Glucose 116 mg/dL (74-99); Non-African American GFR(CKD) >90 (>60 ml/min/1.73 sqM); Potassium 3.7 mmol/L (3.5-5.1); Sodium 135 mmol/L (137-145)
[2019-10-01 07:00] LABS: HGB 9.6 gm/dL (11.4-16.0)
[2019-10-01] MEDS: PANTOPRAZOLE 40 MG TABLET PO SCH (08:03)
[2019-10-01] MEDS: SENNOSIDES-DOCUSATE SODIUM 1 EACH TAB PO SCH (08:03)
[2019-10-01] MEDS: buPROPion XL 300 MG TAB.ER.24H PO SCH (08:03)
--- NOTE | 2019-10-01 08:44 | P.PN ---
Progress Note - Text Progress Note Date: 10/01/19 Postoperative day #1 Patient is seen and examined today at bedside. The patient has some pain around the surgical site as expected. she is more comfortable being up in a chair and has been standing and moving from her bed to chair. Pain is being controlled with medication.she does not have any new complaints in her lower extremities. Her Corrales still intact. She denies any nausea or vomiting. Physical Exam Afebrile with stable vital signs Abdomen is soft nontender. Chest has good excursion deep and space expiration The incision site is clean dry and intact. No erythema there is no purulence.her back dressings are completely clear. There is no active drainage. There is some diffuse swelling which appears to be appropriate. Extremities have not had neurologic change from prior to surgery.she has sustained dorsal flexion plantar flexion and EHL. Calves and thighs were soft nontender without evidence of DVT. Assessment/Plan Postoperative day #1 status post minimally invasive decompression and fusion L3 4 and L4 5 for her spondylolisthesis with severe spinal stenosis and lower extremity radiculopathy and back pain Patient is progressing as expected from the surgery. she has already been able get up and out of bed which is encouraging. We will continue to increase the patient's mobilization with therapy. We will continue pain control with oral or IV medications. we'll get the Corrales discontinued this morning. We'll continue to follow patient closely.
[2019-10-01] MEDS ORDERED: ESTRADIOL TOPICAL SCH (09:00)
--- NOTE | 2019-10-01 10:35 | P.CONS ---
History of Present Illness - Reason for Consult Consult date: 09/30/19 medical management - Chief Complaint status post spinal decompression laminectomy - History of Present Illness Patient is a 59-year-old female with a known history of GERD, hypothyroidism, asthma and chronic back pain and also history of lap band surgery/gastric sleeve was admitted to the hospital for elective laminectomy decompression with wide bilateral foraminotomies L3-4. Patient is currently sitting in a chair. Still having back soreness and pain. No complaints of chest pain no fever no chills. No headache or dizziness or lightheadedness. Patient does have history of severe spinal stenosis L3-L4-L5 and s spondylolisthesis L3-L4 and history of prior laminectomies. Patient states that she she had about 5 back surgeries during the last 18 years. vitals currently blood pressure 145/63 pulse is 105 respiration 18 pulse ox is 99% on 6 L oxygen via nasal cannula. Review of Systems Constitutional: Patient denies any fever or chills . No generalized weakness or weight loss. Abdomen: Patient denied nausea vomiting and diarrhea and abdominal pain. Cardiovascular: Patient denies any chest pain or short of breath no palpitations. Respiratory: patient denied any cough is from production. No shortness of breath Neurologic: Patient denied any numbness or tingling headache. Musculoskeletal: Patient denies any complaints of joint swelling or deformity.back pain. Skin: Negative Psychiatric: Negative Endocrine: No heat or cold intolerance. No recent weight gain. Genitourinary: No dysuria or hematuria. All other 14 point ROS negative except the above Past Medical History Past Medical History: GERD/Reflux, Musculoskeletal Disorder, Thyroid Disorder Additional Past Medical History / Comment(s): past hx of asthma, hx anemia., hypothyroid, Back pain . History of Any Multi-Drug Resistant Organisms: None Reported Past Surgical History: Back Surgery, Bariatric Surgery, Cholecystectomy, Hysterectomy, Orthopedic Surgery, Tonsillectomy Additional Past Surgical History / Comment(s): HX OF LAP BAND AND CHANGED TO GASTRIC SLEEVE (?2010), BACK SURGERY X4 WITH FUSION L-5 S-1., RECTOCELE & CYSTOCELE, DEREJE HAND SURGERY FOR THUMB JOINTS AND TRIGGER FINGER (STATES LIGAMENTS TAKEN FROM HER ARM). Past Anesthesia/Blood Transfusion Reactions: Previous Problems w/ Anesthesia, Postoperative Nausea & Vomiting (PONV) Additional Past Anesthesia/Blood Transfusion Reaction / Comm: STATES SHE "GOES OUT EASILY". Past Psychological History: Depression Smoking Status: Former smoker Past Alcohol Use History: None Reported Additional Past Alcohol Use History / Comment(s): QUIT SMOKING OVER 25 YEARS AGO, STARTED SMOKING AGE 11. Past Drug Use History: None Reported - Past Family History Mother Family Medical History: No Reported History Medications and Allergies Home Medications Medication Instructions Recorded Confirmed Type Levothyroxine Sodium [Synthroid] 50 mcg PO DAILY 05/07/18 09/28/19 History Meloxicam [Mobic] 15 mg PO DAILY 05/07/18 09/28/19 History buPROPion HCL [Wellbutrin XL] 300 mg PO DAILY 05/07/18 09/28/19 History Estradiol [Climara 0.05 MG] 1 patch TRANSDERM Q7D 09/28/19 09/28/19 History Lansoprazole [Prevacid] 15 mg PO DAILY 09/28/19 09/30/19 History Allergies Allergy/AdvReac Type Severity Reaction Status Date / Time No Known Allergies Allergy Verified 09/28/19 08:23 Physical Exam Vitals: Vital Signs Temp Pulse Pulse Resp BP BP Pulse Ox 09/30/19 13:39 95 16 108/71 100 09/30/19 13:00 58 L 16 118/63 99 09/30/19 12:45 60 16 115/60 99 09/30/19 12:30 63 16 114/58 99 09/30/19 12:15 105 H 18 145/63 99 09/30/19 12:00 87 16 124/62 98 09/30/19 06:50 97.9 F 66 20 130/88 99 Intake and Output 09/30/19 09/30/19 09/30/19 06:59 14:59 22:59 Intake Total 100 3251 Output Total 710 Balance 100 2541 Intake: IV 100 3251 Output: Urine 110 Estimated Blood Loss 600 Other: Weight 57.4 kg PHYSICAL EXAMINATION: Patient is lying in the bed comfortably, no acute distress, awake alert and oriented.. HEENT: Normocephalic. Neck is supple. Pupils reactive. Nostrils clear. Oral cavity is moist. Ears reveal no drainage. Neck reveals no JVD, carotid bruits, or thyromegaly. CHEST EXAMINATION: Trachea is central. Symmetrical expansion.bibasilar diminished air entry. Lung varma clear to auscultation and percussion. CARDIAC: Normal S1, S2 with no gallops. No murmurs ABDOMEN: Soft. Bowel sounds normal. No organomegaly. No abdominal bruits. Extremities: reveal no edema. No clubbing or cyanosis Neurologically awake, alert, oriented x3 with well-coordinated movements. No focal deficits noted Skin: No rash or skin lesions. Psychiatric: Coperative. Nonsuicidal Musculoskeletal: No joint swelling or deformity. Normal range of motion. Results CBC & Chem 7: 10/01/19 06:21 10/01/19 06:21 Assessment and Plan Assessment: Status post laminectomy decompression with wide bilateral foraminotomies L3-L4. POD 0 History of chronic back pain multiple decompression surgeries. Chronic low back pain Lower extremity medical apathy History of asthma not in exacerbation GERD Hypothyroidism History of lap band surgery changed to gastric sleeve Previous history of smoking Depression DVT prophylaxis not on heparin due to spinal surgery. Continue with SCDs. Plan: Patient will be continued on pain management, bowel regimen and incentive spirometry. Encourage ambulation. Continue with home medications including levothyroxine and Protonix. Monitor labs. Monitor H&H. Gentle hydration and follow-up closely. We will continue to follow and further recommendations based on the clinical course. Thank you for your consult.
--- NOTE | 2019-10-01 15:44 | P.PN ---
Subjective Progress Note Date: 10/01/19 Principal diagnosis: - Reason for Consult Consult date: 09/30/19 medical management - Chief Complaint status post spinal decompression laminectomy - History of Present Illness Patient is a 59-year-old female with a known history of GERD, hypothyroidism, asthma and chronic back pain and also history of lap band surgery/gastric sleeve was admitted to the hospital for elective laminectomy decompression with wide bilateral foraminotomies L3-4. Patient is currently sitting in a chair. Still having back soreness and pain. No complaints of chest pain no fever no chills. No headache or dizziness or lightheadedness. Patient does have history of severe spinal stenosis L3-L4-L5 and s spondylolisthesis L3-L4 and history of prior laminectomies. Patient states that she she had about 5 back surgeries during the last 18 years. vitals currently blood pressure 145/63 pulse is 105 respiration 18 pulse ox is 99% on 6 L oxygen via nasal cannula. 10/01/2019 Patient is seen and evaluated and follow-up currently lying in bed and continues to have severe lower back pain and discomfort rating it a 10 out of 10 on the pain scale. She states she recently was up with physical therapy walking around the room prior to receiving pain medications and was quite tearful due to the pain. Patient denies any chest pain, shortness of breath, or palpitations. Patient is afebrile. Patient states she was having some intermittent nausea and dry heaving during breakfast but no vomiting reported. Vital signs within normal limits. Current hemoglobin is 9.6, sodium is 135, creatinine is 0.41. Patient is currently maintained on IVP Dilaudid along with Linneus. Discussed with patient about discharge planning and patient states she will be returning home with her once stabilized and discharged. PT/OT following. Will continue to follow along closely with orthopedic surgery. Objective - Vital Signs Vital signs: Vital Signs Temp 98.6 F 10/01/19 07:56 Pulse 86 10/01/19 07:56 Resp 18 10/01/19 07:56 BP 107/65 10/01/19 07:56 Pulse Ox 98 10/01/19 07:56 Intake & Output 09/30/19 10/01/19 10/01/19 18:59 06:59 18:59 Intake Total 3251 1500 Output Total 710 450 Balance 2541 1050 Weight 57.4 kg Intake: IV 3251 Intake, IV Titration 1500 Amount Sodium Chloride 0.9% 1, 1500 000 ml @ 75 mls/hr IV . [id number] [facility] Rx#:[id number] Output: Urine 110 450 Estimated Blood Loss 600 Other: Voiding Method Indwelling Catheter Indwelling Catheter Indwelling Catheter - Exam Patient is lying in the bed comfortably, no acute distress, awake alert and oriented.. HEENT: Normocephalic. Neck is supple. Pupils reactive. Nostrils clear. Oral cavity is moist. Ears reveal no drainage. Neck reveals no JVD, carotid bruits, or thyromegaly. CHEST EXAMINATION: Trachea is central. Symmetrical expansion.bibasilar diminished air entry. Lung varma clear to auscultation and percussion. CARDIAC: Normal S1, S2 with no gallops. No murmurs ABDOMEN: Soft. Bowel sounds normal. No organomegaly. No abdominal bruits. Extremities: reveal no edema. No clubbing or cyanosis Neurologically awake, alert, oriented x3 with well-coordinated movements. No focal deficits noted Skin: No rash or skin lesions. Psychiatric: Cooperative. Non-suicidal Musculoskeletal: No joint swelling or deformity. Normal range of motion. - Labs CBC & Chem 7: 10/01/19 06:21 10/01/19 06:21 Labs: Abnormal Lab Results - Last 24 Hours (Table) 10/01/19 10/01/19 Range/Units 06:21 06:21 RBC 3.49 L (3.80-5.40) m/uL Hgb 9.6 L D (11.4-16.0) gm/dL Hct 30.1 L (34.0-46.0) % Lymphocytes # 0.9 L (1.0-4.8) k/uL Sodium 135 L (137-145) mmol/L Chloride 108 H (98-107) mmol/L Creatinine 0.41 L (0.52-1.04) mg/dL Glucose 116 H (74-99) mg/dL Calcium 8.3 L (8.4-10.2) mg/dL Assessment and Plan Assessment: Status post laminectomy decompression with wide bilateral foraminotomies L3-L4. POD 1 History of chronic back pain multiple decompression surgeries. Chronic low back pain Lower extremity radiculopathy History of asthma not in exacerbation GERD Hypothyroidism History of lap band surgery changed to gastric sleeve Previous history of smoking Depression DVT prophylaxis not on heparin due to spinal surgery. Continue with SCDs. GI prophylaxis: Protonix Plan: Patient will be continued on pain management, bowel regimen and incentive spirometry. Encourage ambulation. PT/OT following. Indwelling Corrales catheter to be removed today and will monitor for retention. Home medications resumed.. Monitor labs. Monitor H&H. Gentle hydration and follow-up closely. We will continue to follow and further recommendations based on the clinical course. Thank you for this consult and we'll continue to follow along closely with you during hospitalization.
[2019-10-01] MEDS: ONDANSETRON 4 MG/2 ML VIAL IVP PRN (23:10)
[2019-10-02] MEDS: HYDROcodone/APAP 5-325MG 1 EACH TAB PO PRN ×3 (00:37→12:24)
[2019-10-02] MEDS: HYDROmorphone 1 MG/ML 1 ML SYRINGE IVP PRN (04:39)
[2019-10-02] MEDS: LEVOTHYROXINE 50 MCG TAB PO SCH (06:02)
[2019-10-02] MEDS: PANTOPRAZOLE 40 MG TABLET PO SCH (08:59)
[2019-10-02] MEDS: SENNOSIDES-DOCUSATE SODIUM 1 EACH TAB PO SCH (08:59)
[2019-10-02] MEDS: buPROPion XL 300 MG TAB.ER.24H PO SCH (08:59)
--- NOTE | 2019-10-02 09:22 | P.DS ---
Providers Date of admission: 09/30/19 22:20 Expected date of discharge: 10/02/19 Attending physician: Jersey Corona Consults: 09/30/19 11:26 Consult Physician Routine Consulting Provider: Sarah De Oliveira Consult Reason/Comments: Medical management Do you want consulting provider notified?: Yes Primary care physician: Ann Banegas - Discharge Diagnosis(es) (1) S/P lumbar fusion Current Visit: Yes Status: Acute (2) History of lumbar fusion Current Visit: Yes Status: Acute (3) Low back pain Current Visit: Yes Status: Acute (4) Lumbar stenosis with neurogenic claudication Current Visit: Yes Status: Acute (5) Radiculopathy with lower extremity symptoms Current Visit: Yes Status: Acute (6) Lumbar facet arthropathy Current Visit: Yes Status: Acute (7) Lumbar degenerative disc disease Current Visit: Yes Status: Acute Hospital Course: This is a pleasant 59-year-old female who presented with L3-4 and L4-5 spondylolisthesis and severe spinal canal stenosis with history of previous fusion at L5-S1, history of prior laminectomy decompression at L4-5 and L5-S1, low back pain, lower extremity radiculopathy, neurogenic claudication, lumbar facet arthrosis, and lumbar degenerative disc disease failed outpatient conservative therapy. She was admitted for an L3-4 and L4-5 minimally invasive posterior lateral decompression and fusion with transforaminal lumbar interbody fusion with revision laminectomy and decompression at L4-5. The patient tolerated the procedure well and did well postoperatively. She has been able to ambulate the hallways. Her pain is well-controlled. She feels her pain has been improving daily since surgical intervention. She is voiding without difficulty. She has not had a bowel movement but feels she needs to have one. Her abdomen is soft. We discussed patient was cleared for discharge home today if she is able to facilitate a bowel movement her to discharge home today. Condition on day of discharge stable. Patient will be discharged home. Patient was cleared preoperatively for surgery by Dr. banegas. Patient currently denies any nausea, vomiting, fever, or chills. Patient is eating and voiding freely without difficulty. Patient may shower Optifoam dressing intact. Patient may remove Optifoam dressing in 3 days and shower without a dressing at that time. Patient should refrain from driving until at least after their first follow-up appointment in the office. Patient should avoid excessive bending, lifting, and twisting; no lifting greater than 10 pounds. MAPS has been reviewed today, 10/02/2019, with an Overall Overdose Risk Score of 190. An "Opiod Start Talking" Form has been signed and placed in the patient's chart. A prescription has been written for Newhall 5 mg/325 mg 1-2 tabs every 6 hours as needed for pain, dispensed 56. Patient should avoid anti-inflammatory medications over the next 6 weeks postoperatively including previous he prescribed mobile. Patient may resume other previous he prescribed medications. Patient is also given a prescription for Senokot 1 tablet twice a day as needed for constipation dispensed #60. Physical Exam on day of discharge: Patient is awake, alert, and oriented 3 Vital signs stable Good chest excursion with deep inspiration and expiration Abdomen soft nontender No signs or symptoms of DVT; no calf pain Extensor hallucis longus, plantarflexion, and dorsiflexion positive sustained bilateral lower extremities Incision is clean, dry, and intact; no erythema, purulence, or signs of infection Mild swelling around the surgical sites No significant pain with palpation of the surgical site No evidence of significant bruising around the surgical sites Optifoam dressings intact Procedures: An L3-4 and L4-5 minimally invasive posterior lateral decompression and fusion with transforaminal lumbar interbody fusion with revision laminectomy and decompression at L4-5 Patient Condition at Discharge: Stable Plan - Discharge Summary Discharge Rx Participant: Yes New Discharge Prescriptions: New Hydrocodone/Acetaminophen [Newhall 5-325] 1 - 2 each PO Q6HR PRN #56 tab PRN Reason: Pain Sennosides-Docusate Sodium [Senokot-S] 1 tab PO BID PRN #60 tablet PRN Reason: Constipation No Action Meloxicam [Mobic] 15 mg PO DAILY Levothyroxine Sodium [Synthroid] 50 mcg PO DAILY buPROPion HCL [Wellbutrin XL] 300 mg PO DAILY Estradiol [Climara 0.05 MG] 1 patch TRANSDERM Q7D Lansoprazole [Prevacid] 15 mg PO DAILY Discharge Medication List Levothyroxine Sodium [Synthroid] 50 mcg PO DAILY 05/07/18 [History] Meloxicam [Mobic] 15 mg PO DAILY 05/07/18 [History] buPROPion HCL [Wellbutrin XL] 300 mg PO DAILY 05/07/18 [History] Estradiol [Climara 0.05 MG] 1 patch TRANSDERM Q7D 09/28/19 [History] Lansoprazole [Prevacid] 15 mg PO DAILY 09/28/19 [History] Hydrocodone/Acetaminophen [Newhall 5-325] 1 - 2 each PO Q6HR PRN #56 tab 10/02/19 [Rx] Sennosides-Docusate Sodium [Senokot-S] 1 tab PO BID PRN #60 tablet 10/02/19 [Rx] Activity/Diet/Wound Care/Special Instructions: 1. Patient may shower with Optifoam dressing intact. 2. Patient may remove Optifoam dressing in 3 days and shower without a dressing at that time. 3. Patient should refrain from driving until at least after their first follow- up appointment in the office. 4. Patient should avoid excessive bending, twisting, and lifting; no lifting greater than 10 pounds 5. Take medications as prescribed 6. Do not soak in tub Discharge Disposition: HOME SELF-CARE
[2019-10-02] MEDS ORDERED: MAGNESIUM HYDROXIDE 2,400 MG/10 ML CUP PO PRN (09:50)
[2019-10-02] MEDS ORDERED: SENNOSIDES-DOCUSATE SODIUM 1 EACH TAB PO PRN (09:50)
[2019-10-02] MEDS: SODIUM CHLORIDE 0.9% 1,000 ML IV SCH (10:59)
[2019-10-02 13:51] VITALS: BP 112/67; PULSE 90; TEMP 98.4
[2019-10-02 15:34] VITALS: RESP 20
--- NOTE | 2019-10-02 15:46 | P.PN ---
Subjective Progress Note Date: 10/02/19 Principal diagnosis: - Reason for Consult Consult date: 09/30/19 medical management - Chief Complaint status post spinal decompression laminectomy - History of Present Illness Patient is a 59-year-old female with a known history of GERD, hypothyroidism, asthma and chronic back pain and also history of lap band surgery/gastric sleeve was admitted to the hospital for elective laminectomy decompression with wide bilateral foraminotomies L3-4. Patient is currently sitting in a chair. Still having back soreness and pain. No complaints of chest pain no fever no chills. No headache or dizziness or lightheadedness. Patient does have history of severe spinal stenosis L3-L4-L5 and s spondylolisthesis L3-L4 and history of prior laminectomies. Patient states that she she had about 5 back surgeries during the last 18 years. vitals currently blood pressure 145/63 pulse is 105 respiration 18 pulse ox is 99% on 6 L oxygen via nasal cannula. 10/01/2019 Patient is seen and evaluated and follow-up currently lying in bed and continues to have severe lower back pain and discomfort rating it a 10 out of 10 on the pain scale. She states she recently was up with physical therapy walking around the room prior to receiving pain medications and was quite tearful due to the pain. Patient denies any chest pain, shortness of breath, or palpitations. Patient is afebrile. Patient states she was having some intermittent nausea and dry heaving during breakfast but no vomiting reported. Vital signs within normal limits. Current hemoglobin is 9.6, sodium is 135, creatinine is 0.41. Patient is currently maintained on IVP Dilaudid along with [place]. Discussed with patient about discharge planning and patient states she will be returning home with her once stabilized and discharged. PT/OT following. Will continue to follow along closely with orthopedic surgery. 10/02/2019 Patient is seen and evaluated and follow-up currently sitting up in the chair and states she has been up and walking to the bathroom back. Patient continues to have some pain although is slightly improved from yesterday. Patient states she is passing minimal gas but has not had a bowel movement yet. Following along closely with orthopedic surgery. Patient states she will be discharged today. She denies having any chest pain, shortness of breath, or palpitations. Patient is afebrile. No reports of nausea or vomiting and patient is tolerating diet. Objective - Vital Signs Vital signs: Vital Signs Temp 98.6 F 10/02/19 08:07 Pulse 75 10/02/19 08:07 Resp 18 10/02/19 08:07 BP 99/62 10/02/19 08:07 Pulse Ox 96 10/02/19 08:07 Intake & Output 10/01/19 10/02/19 10/02/19 18:59 06:59 18:59 Intake Total 370 725 Output Total 600 Balance -230 725 Intake: Intake, IV Titration 725 Amount Sodium Chloride 0.9% 1, 725 000 ml @ 75 mls/hr IV . [id number] [facility] Rx#:[id number] Oral 370 Output: Urine 600 Other: Voiding Method Toilet Toilet Toilet # Voids 1 - Exam Patient is sitting in the chair comfortably, no acute distress, awake alert and oriented.. HEENT: Normocephalic. Neck is supple. Pupils reactive. Nostrils clear. Oral cavity is moist. Ears reveal no drainage. Neck reveals no JVD, carotid bruits, or thyromegaly. CHEST EXAMINATION: Trachea is central. Symmetrical expansion.bibasilar diminished air entry. Lung varma clear to auscultation and percussion. CARDIAC: Normal S1, S2 with no gallops. No murmurs ABDOMEN: Soft. Bowel sounds normal. No organomegaly. No abdominal bruits. Extremities: reveal no edema. No clubbing or cyanosis Neurologically awake, alert, oriented x3 with well-coordinated movements. No focal deficits noted Skin: No rash or skin lesions. Psychiatric: Cooperative. Non-suicidal Musculoskeletal: No joint swelling or deformity. Normal range of motion. - Labs CBC & Chem 7: 10/01/19 06:21 10/01/19 06:21 Assessment and Plan Assessment: Status post laminectomy decompression with wide bilateral foraminotomies L3-L4. POD 2 History of chronic back pain multiple decompression surgeries. Chronic low back pain Lower extremity radiculopathy History of asthma not in exacerbation GERD Hypothyroidism History of lap band surgery changed to gastric sleeve Previous history of smoking Depression DVT prophylaxis not on heparin due to spinal surgery. Continue with SCDs. GI prophylaxis: Protonix Plan: Patient will be continued on pain management, bowel regimen and incentive spirometry. Encourage ambulation. PT/OT following. indwelling Corrales catheter was removed and patient is voiding. patient is passing gas but has not had a bowel movement yet. Home medications resumed.. Monitor labs. Monitor H&H. Gentle hydration and follow-up closely. We will continue to follow and further recommendations based on the clinical course. patient states she will be discharged this afternoon. Thank you for this consult and we'll continue to follow along closely with you during hospitalization.
== END 2019-10-02 16:28 | disposition home or self-care (01) | DRG 455 ==
LOC: OR 05:55 → 5NMEDONC 13:34 → OR 23:31 → OBSVTOIN 10-02 08:32
PROVIDERS: ADMIT Orthopaedic Surgery Orthopaedic Surgery of the Spine; ATTEND Orthopaedic Surgery Orthopaedic Surgery of the Spine
PROC: 0SG10AJ Fusion of 2 or more Lumbar Vertebral Joints with Interbody Fusion Device, Posterior Approach, Anterior Column, Open Approach (ICD-10-PCS; 2019-09-30)
PROC: 0ST20ZZ Resection of Lumbar Vertebral Disc, Open Approach (ICD-10-PCS; 2019-09-30)
PROC: 01NB0ZZ Release Lumbar Nerve, Open Approach (ICD-10-PCS; 2019-09-30)
PROC: 0SG1071 Fusion of 2 or more Lumbar Vertebral Joints with Autologous Tissue Substitute, Posterior Approach, Posterior Column, Open Approach (ICD-10-PCS; principal; 2019-09-30 07:30)
DX: M48.062 Spinal stenosis, lumbar region with neurogenic claudication (principal); M51.16 Intervertebral disc disorders with radiculopathy, lumbar region; M43.16 Spondylolisthesis, lumbar region; K21.9 Gastro-esophageal reflux disease without esophagitis; J45.909 Unspecified asthma, uncomplicated; G89.29 Other chronic pain; E03.9 Hypothyroidism, unspecified; F32.9 Major depressive disorder, single episode, unspecified; H91.90 Unspecified hearing loss, unspecified ear; R11.0 Nausea; M47.26 Other spondylosis with radiculopathy, lumbar region; K59.00 Constipation, unspecified; Z98.1 Arthrodesis status; Z98.890 Other specified postprocedural states; Z98.84 Bariatric surgery status; Z87.891 Personal history of nicotine dependence; Z79.890 Hormone replacement therapy; Z79.1 Long term (current) use of non-steroidal anti-inflammatories (NSAID); Z79.899 Other long term (current) drug therapy; Z90.710 Acquired absence of both cervix and uterus; Z90.49 Acquired absence of other specified parts of digestive tract
CPT/HCPCS: 72100; 80048; 85025; 86850; 86900; 86901

== ENCOUNTER → 2020-08-02 | Outpatient (CLI) | payer BC ==
--- NOTE | 2020-08-02 11:17 | XR ---
EXAMINATION TYPE: XR chest 2V DATE OF EXAM: 08/02/2020 COMPARISON: 09/17/2019 TECHNIQUE: PA and lateral views submitted. HISTORY: Preop FINDINGS: The lungs are clear and there is no pneumothorax, pleural effusion, or focal pneumonia. Postsurgica l changes involving the abdomen vertebral column. Hyperinflation suggests COPD. Heart size normal. No overt failure. IMPRESSION: 1. No acute process. 2. COPD.
[2020-08-02 15:01] LABS: Partial Thromboplastin Time 26.3 sec (22.0-30.0); Prothrombin Time 10.3 sec (9.0-12.0)
== END | disposition home or self-care (01) ==
LOC: LABPAT 10:53
PROVIDERS: ATTEND Orthopaedic Surgery Orthopaedic Surgery of the Spine
DX: Z01.812 Encounter for preprocedural laboratory examination (principal); M54.10 Radiculopathy, site unspecified; J44.9 Chronic obstructive pulmonary disease, unspecified
CPT/HCPCS: 36415; 71046; 85610; 85730; 87070

== ENCOUNTER 2020-08-10 06:05 | Inpatient (IN) | payer BC ==
[2020-08-05 11:47] VITALS: BMI 21.9
[~2020-08-10 06:05] MED LIST changes: -DEXAMETHASONE SOD PHOSPHATE 10 MG/ML 1 ML VIAL IV ONE; -LACTATED RINGERS 1,000 ML IV SCH; -ONDANSETRON 4 MG/2 ML VIAL IVP ONE; +ceFAZolin 1,000 MG in SODIUM CHLORIDE 0.9% IRRIGATIO 1,000 ML IRRIGATION PRN
[2020-08-10] MEDS ORDERED: ONDANSETRON 4 MG/2 ML VIAL ONE (06:44)
[2020-08-10] MEDS ORDERED: LACTATED RINGERS 1,000 ML IV ONE ×3 (06:52→10:50)
[2020-08-10] MEDS ORDERED: LIDOCAINE 1% (10MG/ML) FOR IV START INTRADERMA ONE (06:52)
[2020-08-10] MEDS ORDERED: ONDANSETRON 4 MG/2 ML VIAL IVP ONE (06:53)
[2020-08-10] MEDS ORDERED: HYDROmorphone (PF) 1 MG/ML ONE (07:30)
[2020-08-10] MEDS ORDERED: NEOSTIGMINE 1 MG/ML 10 ML VIAL ONE (07:30)
[2020-08-10] MEDS ORDERED: diphenhydrAMINE 50 MG/ML 1 ML VIAL ONE (07:30)
[2020-08-10] MEDS ORDERED: SODIUM CHLORIDE 0.9% 100 ML BAG ONE (07:30)
[2020-08-10] MEDS ORDERED: MIDAZOLAM 2 MG/2 ML VIAL ONE (07:30)
[2020-08-10] MEDS ORDERED: fentaNYL (PF) 50 MCG/ML 2 ML AMP ONE (07:30)
[2020-08-10] MEDS ORDERED: FUROSEMIDE 10 MG/ML 2 ML VIAL ONE (07:30)
[2020-08-10] MEDS ORDERED: LIDOCAINE 1% INJ 10MG/ML (20 ML MDV) ONE (07:30)
[2020-08-10] MEDS ORDERED: ceFAZolin 1,000 MG VIAL ONE (07:30)
[2020-08-10] MEDS ORDERED: PROPOFOL 10 MG/ML 20 ML VIAL IV ONE (07:30)
[2020-08-10] MEDS ORDERED: GLYCOPYRROLATE 0.2 MG/ML 2 ML VIAL ONE (07:30)
[2020-08-10] MEDS ORDERED: PHENYLEPHRINE-0.9% NACL SYG 1,000 MCG/10 ML SYRINGE ONE (07:30)
[2020-08-10] MEDS ORDERED: ROCURONIUM 10 MG/ML (5 ML VIAL) IV ONE (07:30)
[2020-08-10] MEDS ORDERED: SUCCINYLCHOLINE CHLORIDE 100 MG/5 ML SYR IV ONE (07:30)
[2020-08-10] MEDS ORDERED: KETAMINE 10 MG/ML 20 ML VIAL ONE (07:30)
[2020-08-10] MEDS ORDERED: THROMBIN (BOVINE) 5,000 UNIT VIAL TOPICAL ONE (08:07)
[2020-08-10] MEDS ORDERED: BUPIVACAINE (PF) 0.25% 30 ML VIAL SQ ONE (08:07)
[2020-08-10] MEDS ORDERED: LIDOCAINE 2%-EPI 1:100,000 20 ML VIAL SQ ONE (08:07)
[2020-08-10] MEDS ORDERED: GELATIN SPONGE,ABSORB (LARGE) 1 EACH SPONGE TOPICAL ONE (08:07)
[2020-08-10] MEDS ORDERED: HYDROcodone/APAP 5-325MG 1 EACH TAB PO PRN ×2 (11:51→11:55)
[2020-08-10] MEDS ORDERED: BENZOCAINE/MENTHOL LOZENG 1 EACH LOZENGE MUCOUS MEM PRN (11:51)
[2020-08-10] MEDS ORDERED: MAGNESIUM HYDROXIDE 2,400 MG/10 ML CUP PO PRN (11:52)
[2020-08-10] MEDS ORDERED: diazePAM 5 MG TAB PO PRN (11:52)
[2020-08-10] MEDS ORDERED: CYCLOBENZAPRINE 10 MG TAB PO PRN ×2 (11:52→11:55)
[2020-08-10] MEDS ORDERED: ALBUTEROL HFA INHALER INHALATION PRN (11:55)
[2020-08-10] MEDS ORDERED: LEVOFLOXACIN 500 MG TAB PO SCH (12:00)
[2020-08-10] MEDS ORDERED: ESTRADIOL 0.05 MG TRANSDERM SCH (12:00)
[2020-08-10] MEDS: HYDROmorphone 0.5 MG/0.5 ML SYRINGE IVP PRN ×2 (12:24→17:10)
--- NOTE | 2020-08-10 12:29 | P.OP ---
Date of Procedure: 08/10/20 Preoperative Diagnosis: Displaced internal fixation L4 5, pseudoarthrosis L4 5, low back pain, lower extremity radiculopathy, history of prior decompression and fusion L3 4 L4 5, lower extremity weakness, chronic low back pain Postoperative Diagnosis: Same with findings of pseudoarthrosis L4 5 and stable fusion L3 4 Incidental durotomy less than 1 mm Anesthesia: GETA Pathology: none sent Condition: stable Disposition: PACU Description of Procedure: DESCRIPTION OF PROCEDURE(S): BRIEF OPERATIVE NOTE Preoperative Diagnosis: Displaced internal fixation L4 5, pseudoarthrosis L4 5, low back pain, lower extremity radiculopathy, history of prior decompression and fusion L3 4 L4 5, lower extremity weakness, chronic low back pain Postoperative Diagnosis:Displaced internal fixation L4 5, pseudoarthrosis L4 5, low back pain, lower extremity radiculopathy, history of prior decompression and fusion L3 4 L4 5, lower extremity weakness, chronic low back pain Incidental durotomy less than 1 mm at L4 5 Procedure: Removal of deep hardware L3 L4 L5 and interbody device L4 5 Exploration of fusion L3 4 L4 5 with findings of solid fusion L3 4 and pse udoarthrosis L4 5 Revision Laminectomy and decompression L4 5 with excision of significant scar tissue formation Revision Minimally invasive Posterior lateral decompression and fusion L4 5 Revision Minimally invasive Transforaminal lumbar interbody fusion with bone graft and autogenous bone Revision Discectomy for decompression Local autogenous bone grafting Use of bone graft extenders Surgeon: Dr. Corona Concreter: Lyndon CARCAMO who is present throughout the entire the case persistence during positioning, dissection, exposure, visualization, and all crucial elements of the case as well as closure. Anesthesia: General anesthesia Estimated blood loss: Approximately 400 mL Complications: Incidental durotomy at L4 5 less than 1 mm at the ventral surface of the dura which was sealed and stable with Tisseel Components implanted: New K2M pedicle screws measuring 8.5 and 7.5 mm with a new leyla and Screws were placed on the left side at L3 to L5 We also used one ampule of Tisseel and fibrous bony bullets and fibrous bone graft boats to supplemental local autogenous bone graft Disposition: To recovery room in good stable condition in flat supine position OPERATIVE INDICATIONS The patient has had long-standing issues in their lower back and lower extremities. The patient has undergone multiple procedures at her lumbar spine. In September 2019 she underwent minimally invasive decompression and fusion L3 4 and L4 5 with our service for her severe spinal stenosis and lower extremity radiculopathy. The patient initially did very well with this and was making good progress. However she started having worsening pain at the left lower extremity. She was found to have some displacement of the interbody graft at L4 5 with protrusion posteriorly causing stenosis at L4 5 foramen. There is some evidence of loosening of the hardware at L4 5 as well. We attempted conservative treatment and the patient was continued to have issues at her lower extremity and at her lower back. There was some evidence of loosening at L4 5 screws and displacement of the interbody device causing stenosis. The patient has been through conservative treatment. We felt that with the hardware change and the patient's worsening symptoms that she is a candidate for revision decompression and fusion at L4 5. We discussed various treatment options including surgery, and the patient wishes to proceed with surgery We discussed the risk, patient's alternatives and benefits of surgery including but not limited to, risk of bleeding risk of infection, risk of need for further surgery, risk of decreased, loss of motion, muscle function, malunion nonunion, hardware failure, nerve damage, paralysis, heart attack, blindness and . OPERATIVE SUMMARY After discussing all the risks, patient alternatives and benefits at length, the patient elected to proceed with surgical intervention, signed informed consent, and presented for their procedure. The patient was seen and examined in the preoperative holding area and the surgical site was marked. The patient was given antibiotics and brought to the operating room. The patient was sedated and intubated by anesthesia in standard fashion. The patient was positioned on to the operating room table in a prone position on the appropriate frame which was well-padded and well molded. We were careful to pad any bony prominences and pressure points. We were careful to maintain the patient's cervical spine and good neutral alignment and position throughout. The patient was prepped and draped in a normal standard fashion. An appropriate timeout and keystone protocol performed. We were able to proceed with the surgery. The local wound area was infiltrated with local anesthetic At the left side paracentral area from L3 to L5 Establish an incision over the left side using the prior incision approximately 6 and revision length. As able to dissect through the fascia and through the muscle up to the screw heads at L3 4 and 5 on left. This was easily confirmed. I was able start removing the hardware at L34 and 5 removing the Screws and removing the leyla. I dissected further down particularly with attention L4 5. I was able place a retractor L45 with a turnover retractor and then do further dissection medially to expose the interspace at the interlaminar space at L4 5. No was made of severe scar tissue formation. The scar tissue formation was strangulating the dura and the exiting and traversing nerve roots. It took great meticulous care in order to mobilize the scar tissue and removed numerous portion scar tissue. There is severe scar tissue over the cage at L4 5 where able to locate the cage posteriorly. The cage was notably loose. I was able to expose posterior aspects cage and place a screw removal tool into the posterior aspect cage. Retracting the dura and nerve roots I was able to then remove the cage in total. It was examined and found to be in total. During the dissection there was note of a small incidental durotomy. It was less than 1 mm and apparently on the volar aspect of the dura itself. This occurred during takedown of scar tissue. It appeared to sit remained stable. Upon removing the interbody device as [address] Tisseel over the area and it appeared to have excellent coverage and control of the durotomy. We performed a Valsalva maneuver and there was no evidence of further dural leak. I did not feel we had to place sutures directly into the dura. With the interbody device removed I did revision interbody preparation with serial curettes to get good endplate preparation. I was able plaque the interbody space with local autogenous bone graft and with fibrous bony bullets. They were packed in appropriately with good apparent stability. We had good decompression at L4 5. There is no evidence of further dural tear or leak. Go od hemostasis maintained. I then checked the screws at L4 and 5 and they were obviously loose. I removed the screws at L4 5. I checked the screw at L3 and at had some mild loosening as well and remove the screw at L3 as well. I replaced the screws at L5 with an 8.5 mm screw and at L3 and L4 with 7.5 mm screws With the screws intact I then measured and recontoured a new leyla and the leyla was placed appropriately at L3 4 and 5. Screws applied and torqued appropriately torque wrench. It was checked and found to have good stability. Good hemostasis maintained. There is no evidence of any dural tear or leak. The wound was irrigated and suctioned dry. With the hardware intact, intraoperative C-arm imaging was again taken which showed good alignment and position of the hardware at the appropriate levels. With this intact, I dissected down over the transverse processes at L45 and decorticated transverse process and lateral aspect of facet joints. I was able place bone graft with local autogenous bone graft into the posterior lateral gutter from L4 to L5. The L3 4 level did not show any evidence of motion on exploration. With the bone graft intact, a stable construct, and good d ecompression at the appropriate levels, we were able to proceed with closure. Good hemostasis was maintained. There is no evidence of dural tear or leak. The fascia was closed for a watertight closure. he subcuticular tissue was closed with absorbable suture. The wound was cleaned and dried and dressed with the appropriate dressing. The drapes were broken down. The patient was gently rolled back onto their hospital bed being careful to maintain their cervical spine and good neutral alignment and position. They were woken up by anesthesia, extubated, and brought to the recovery room in good stable condition. The patient will be admitted to the hospital for appropriate postoperative care, medical management and monitoring. We will need to keep her supine flat in bed for at least 48 hours to allow further dural healing before she is able to mobilize We will continue to follow them closely about the postoperative course.
--- NOTE | 2020-08-10 12:43 | FL ---
Fluoroscopy INDICATION: Pain FINDINGS: Fluoroscopy time: 8 seconds. Images obtained: 2. IMPRESSIONS: 1. Documentation of fluoroscopy.
[2020-08-10] MEDS: ONDANSETRON 4 MG/2 ML VIAL IVP PRN ×2 (13:10→21:40)
[2020-08-10] MEDS: SODIUM CHLORIDE 0.9% 1,000 ML IV SCH (13:15)
[2020-08-10] MEDS: HYDROmorphone 1 MG/ML 1 ML SYRINGE IVP PRN ×2 (13:44→20:20)
--- NOTE | 2020-08-10 15:31 | P.CONS ---
History of Present Illness - Reason for Consult Consult date: 08/10/20 Medical management Requesting physician: Jersey Corona - Chief Complaint Chronic low back pain - History of Present Illness This is a 60-year-old female with complex past medical history noted below significant for prior back surgery that was admitted to the hospital for revision laminectomy and decompression of L4/L5 with excision of significant scar tissue. Patient is postoperative day #0. I was asked to see her for medical management. Patient was lethargic but easily arousable when I saw her. She was complaining of some back pain. She otherwise does not have any concerns. Review of Systems Review of system: 14 points review of systems were obtained and were negative except to what were mentioned in the HPI. Past Medical History Past Medical History: Asthma, GERD/Reflux, Thyroid Disorder Additional Past Medical History / Comment(s): hx anemia., Back pain, lumbar stenosis, degenerative and herniated disks, pt states finished antibiotic 08/04/20 for UTI History of Any Multi-Drug Resistant Organisms: None Reported Past Surgical History: Back Surgery, Cholecystectomy, Hysterectomy, Orthopedic Surgery, Tonsillectomy Additional Past Surgical History / Comment(s): lumbar fusion x 2, total 6 back surgeries, cystocele x 2, rectocele, tendon surgery connor thumbs, hardware removal and revision or spinal decompression 08/22 Past Anesthesia/Blood Transfusion Reactions: Previous Problems w/ Anesthesia, Postoperative Nausea & Vomiting (PONV) Additional Past Anesthesia/Blood Transfusion Reaction / Comm: STATES SHE "GOES OUT EASILY". Past Psychological History: Depression Smoking Status: Former smoker Past Alcohol Use History: None Reported Additional Past Alcohol Use History / Comment(s): QUIT SMOKING 30 YEARS AGO, STARTED SMOKING AGE 11. Past Drug Use History: None Reported - Past Family History Mother Family Medical History: No Reported History Medications and Allergies Home Medications Medication Instructions Recorded Confirmed Type Levothyroxine Sodium [Synthroid] 50 mcg PO DAILY 05/07/18 08/10/20 History Meloxicam [Mobic] 15 mg PO DAILY 05/07/18 08/10/20 History buPROPion HCL [Wellbutrin XL] 300 mg PO DAILY 05/07/18 08/10/20 History Estradiol [Climara 0.05 MG] 1 patch TRANSDERM WE 09/28/19 08/10/20 History Lansoprazole [Prevacid] 15 mg PO Q2D 09/28/19 08/10/20 History Hydrocodone/Acetaminophen [[place] 1 - 2 each PO Q6HR PRN #56 tab 10/02/19 08/10/20 Rx 5-325] Cyclobenzaprine [Flexeril] 10 mg PO DAILY PRN 08/05/20 08/05/20 History Levofloxacin [Levaquin] 500 mg PO DIRECTED 08/05/20 08/10/20 History Albuterol Inhaler [Ventolin Hfa 1 puff INHALATION DIRECTED PRN 08/09/20 08/10/20 History Inhaler] Allergies Allergy/AdvReac Type Severity Reaction Status Date / Time No Known Allergies Allergy Verified 08/05/20 11:36 Physical Exam Vitals: Vital Signs Temp Pulse Resp BP Pulse Ox 08/10/20 12:45 62 16 115/61 100 08/10/20 12:30 64 14 120/65 100 08/10/20 12:15 66 14 117/68 100 08/10/20 12:03 97.7 F 78 14 113/69 100 08/10/20 06:43 97.0 F L 71 16 135/79 100 Intake and Output 08/10/20 08/10/20 08/10/20 06:59 14:59 22:59 Intake Total 100 2451 Output Total 1365 Balance 100 1086 Intake: IV 100 2451 Output: Urine 1015 Estimated Blood Loss 350 Other: Weight 60 kg 60 kg General: The patient is awake and alert, in no distress Eye: there is normal conjunctiva bilaterally. Neck: The neck is supple, there is no JVD. Cardiovascular: Normal S1-S2, no S3-S4, no murmurs. Respiratory: Lungs clear to auscultation bilaterally Gastrointestinal: Abdomen is soft, nontender Musculoskeletal: There is no pedal edema. Neurological:. Speech is normal. Skin: Skin is warm and dry Assessment and Plan Assessment: 1. Postoperative day #0 status post revision laminectomy and decompression of L4/L5 with excision of significant scar tissue: Postoperative care, pain controlled, and DVT prophylaxis per orthopedic 2. Chronic medical problems: Hypothyroidism, underlying anxiety, and GERD Today, I reviewed her medication list. I will work ordered for the morning. Thank you for the consultation. I will continue to follow up on the patient closely with you.
[2020-08-10] MEDS ORDERED: ACETAMINOPHEN IV (For NPO) 500 MG in EMPTY BAG 1 BAG IVPB PRN (23:35)
[2020-08-11] MEDS: SODIUM CHLORIDE 0.9% 1,000 ML IV SCH (01:07)
[2020-08-11] MEDS: HYDROmorphone 1 MG/ML 1 ML SYRINGE IVP PRN ×2 (01:26→08:27)
[2020-08-11] MEDS: ONDANSETRON 4 MG/2 ML VIAL IVP PRN ×3 (01:26→14:16)
[2020-08-11] MEDS: LEVOTHYROXINE 50 MCG TAB PO SCH (05:56)
[2020-08-11] MEDS: SENNOSIDES-DOCUSATE SODIUM 1 EACH TAB PO SCH (07:54)
[2020-08-11] MEDS: PANTOPRAZOLE 40 MG TABLET PO SCH (07:54)
[2020-08-11] MEDS: buPROPion XL 300 MG TAB.ER.24H PO SCH (07:54)
[2020-08-11] MEDS ORDERED: ACETAMINOPHEN IV (For NPO) 1,000 MG in EMPTY BAG 1 BAG IVPB PRN (08:53)
--- NOTE | 2020-08-11 08:59 | P.PN ---
Progress Note - Text Progress Note Date: 08/11/20 Postoperative day #1 Patient is seen and examined today at bedside. She remains flat and supine in bed. She says that she has had occasional headaches behind her left eye which is somewhat mild for her but has been present from time to time. She has been having significant nausea and dry heaving frequently. She feels is directly related to her pain medications. She still requiring some pain medication for her back. She has been getting Dilaudid, IV Tylenol, and Zofran for her nausea. She says currently she is having some relief with her regimen. She still has some numbness tingling of her left lower extremity. Physical Exam Afebrile with stable vital signs Abdomen is soft nontender. Chest has good excursion deep and space expiration The incision site has a dressing intact. Extremities have not had neurologic change from prior to surgery. She has sustained sustained dorsal flexion plantar flexion and EHL intact. Calves and thighs were soft nontender without evidence of DVT. Assessment/Plan Postoperative day #1 status post revision decompression and fusion L4 5 Incidental durotomy at the time of surgery Patient is progressing slowly as expected from the surgery. We need to keep her flat in supine in bed to aid the healing of the durotomy. She did mention she had some headache but she has been having dry heaving and has not been able to eat at all since her surgery. She has had common problems postoperatively with nausea in the past. This is not overly out of the ordinary for her in terms of her postop nausea. We will continue to try to control this with medication. She has been dry heaving which gives us can some concern in terms of the dural healing. We'll keep her flat in bed at least until tomorrow. If she is still having some headaches we may keep her flat in bed until Saturday. We will need to keep her on bed rest with her [place] intact. We will keep her on prophylactic antibiotics as long as the [place] is intact. I will increase her IV Tylenol to see if that helps control her pain without nausea as well. We will continue pain control with oral or IV medications. We'll continue to follow patient closely.
[2020-08-11 09:02] LABS: Basophils % (A) 0 %; Eosinophils % (A) 1 %; HCT 27.3 % (34.0-46.0); HGB 8.8 gm/dL (11.4-16.0); Hypochromasia Slight; Lymphocytes # (A) 0.7 k/uL (1.0-4.8); Lymphocytes % (A) 13 %; MCH 25.1 pg (25.0-35.0); MCHC 32.3 g/dL (31.0-37.0); MCV 77.7 fL (80.0-100.0); Mean Platelet Volume 6.6; Microcytosis Slight; Monocytes # (A) 0.4 k/uL (0-1.0); Monocytes % (A) 7 %; Neutrophils # (A) 4.2 k/uL (1.3-7.7); Neutrophils % (A) 77 %; Platelet Count 246 k/uL (150-450); RBC 3.51 m/uL (3.80-5.40); RDW 15.6 % (11.5-15.5); WBC 5.5 k/uL (3.8-10.6)
[2020-08-11 09:19] LABS: African American GFR (CKD) >90 (>60 ml/min/1.73 sqM); Anion Gap 3 mmol/L; Blood Urea Nitrogen 9 mg/dL (7-17); Calcium 8.2 mg/dL (8.4-10.2); Carbon Dioxide 26 mmol/L (22-30); Chloride 106 mmol/L (98-107); Glucose 109 mg/dL (74-99); Non-African American GFR(CKD) >90 (>60 ml/min/1.73 sqM); Potassium 3.6 mmol/L (3.5-5.1); Sodium 135 mmol/L (137-145)
[2020-08-11] MEDS ORDERED: CALCIUM CARBONATE 500 MG CHEWABLE PO PRN (14:08)
[2020-08-11] MEDS: HYDROcodone/APAP 5-325MG 1 EACH TAB PO PRN ×2 (14:17→20:58)
--- NOTE | 2020-08-11 14:17 | P.PN ---
Subjective Progress Note Date: 08/11/20 Principal diagnosis: delayed charting seen at 1045 Patient is a 60-year-old female with a history of chronic low back pain status post elective L4 5 revision laminectomy with decompression, asthma, GERD, and hypothyroidism. We're asked to consult regarding asthma. Secondary to dural puncture she is to remain flat per ortho/spine Patient seen and examined at bedside. She complains of nausea but has been persistent. She has been unable to tolerate a regular diet. She denies any headache at this time and states it is better but now she is just having back pain and some abdominal pain. She denies any chest pain or shortness of breath. We discussed trying a liquid diet prior to advancing to a regular diet. Due to having to lay supine it may be difficult to chew and swallow. Her is going to bring her in a smoothie, she will try some immature and Magic cups today. We will transition to full liquid diet advance as tolerated when she is sitting upright. General: Ill appearing, mild distress secondary to pain, appears at stated age Derm: warm, dry Head: atraumatic, normocephalic, symmetric Eyes: EOMI, no lid lag, anicteric sclera Mouth: no lip lesion, mucus membranes moist Cardiovascular: S1S2 reg, no murmur, positive posterior tibial pulse bilateral, Lungs: CTA bilateral, no rhonchi, no rales , no accessory muscle use Abdominal: soft, nontender to palpation, + guarding, no appreciable organomegaly Ext: no gross muscle atrophy, no edema, no contractures Neuro: CN II-XI grossly intact, no focal neuro deficits Psych: Alert, oriented, appropriate affect Intractable nausea -Likely secondary to headache, pain medication use, and history of acid reflux -Continue with PPI, add Tums -Continue with pain control -Full liquid diet advance to regular as tolerated Chronic low back pain with revision L4 5 laminectomy and durotomy -Management per orthospine -Pain control Hypothyroidism -Synthroid Asthma without exacerbation -When necessary bronchodilators Anemia, postoperative, anticipated -Follow CBC, no indication for transfusion at this point in time Thank you for allowing us to participate in the care of this pleasant patient. Do not hesitate to contact us with questions. Someone can be reached from the [facility] hospitalist group all hours of the day at [phone] or via [employer]. Objective - Vital Signs Vital signs: Vital Signs Temp 98.4 F 08/11/20 08:01 Pulse 83 08/11/20 08:01 Resp 15 08/11/20 08:01 BP 93/56 08/11/20 08:01 Pulse Ox 96 08/11/20 08:01 Intake & Output 08/10/20 08/11/20 08/11/20 18:59 06:59 18:59 Intake Total 2451 1000 Output Total 1715 550 Balance 736 450 Weight 60 kg Intake: IV 2451 Intake, IV Titration 1000 Amount ACETAMINOPHEN IV (For NPO 50 ) 500 mg In Empty Bag 1 bag @ 400 mls/hr IVPB Q6HR PRN Rx#:[id number] Sodium Chloride 0.9% 1, 900 000 ml @ 75 mls/hr IV . [id number] DAYDAY Rx#:[id number] ceFAZolin 2 gm In Sodium 50 Chloride 0.9% 50 ml @ 100 mls/hr IVPB Q8HR [facility] Rx# :[id number] Output: Urine 1365 550 Estimated Blood Loss 350 Other: Voiding Method Indwelling Catheter - Labs CBC & Chem 7: 08/11/20 08:00 08/11/20 08:00 Labs: Abnormal Lab Results - Last 24 Hours (Table) 08/11/20 08/11/20 Range/Units 08:00 08:00 RBC 3.51 L (3.80-5.40) m/uL Hgb 8.8 L (11.4-16.0) gm/dL Hct 27.3 L (34.0-46.0) % MCV 77.7 L (80.0-100.0) fL RDW 15.6 H (11.5-15.5) % Lymphocytes # 0.7 L (1.0-4.8) k/uL Sodium 135 L (137-145) mmol/L Glucose 109 H (74-99) mg/dL Calcium 8.2 L (8.4-10.2) mg/dL
[2020-08-12] MEDS: SODIUM CHLORIDE 0.9% 1,000 ML IV SCH ×3 (00:48→23:05)
[2020-08-12] MEDS: HYDROcodone/APAP 5-325MG 1 EACH TAB PO PRN (04:36)
[2020-08-12] MEDS: LEVOTHYROXINE 50 MCG TAB PO SCH (05:49)
[2020-08-12] MEDS: SENNOSIDES-DOCUSATE SODIUM 1 EACH TAB PO SCH (08:24)
[2020-08-12] MEDS: buPROPion XL 300 MG TAB.ER.24H PO SCH (08:24)
[2020-08-12] MEDS: HYDROmorphone 1 MG/ML 1 ML SYRINGE IVP PRN ×3 (08:24→20:16)
--- NOTE | 2020-08-12 08:59 | P.PN ---
<Lyndon Smith - Last Filed: 08/12/20 08:57> Progress Note - Text Progress Note Date: 08/12/20 Orthopedic Spine: History of present illness: Patient is a very pleasant 60-year-old female who is seen and examined at the bedside following L4-5 revision posterior lateral decompression and fusion with removal of hardware at L3-4, L4-5, and interbody device at L4-5 with exploration of fusion at L3-4 performed Saturday. During surgical intervention there was an incidental durotomy of less than 1 mm at L4-5. Patient continues to be lying flat in bed following surgical intervention. She had been having a headache behind her eye yesterday. Patient states the bedside she is a frequent coffee drinker. Since having coffee she has not had any headache since yesterday. Overall she feels her pain is well-controlled. Her left lower extremity feels different currently than it did prior to surgical intervention. It is not currently painful. She is unsure how painful it will be as she has not been able to ambulate due to her bed rest status. She has been able to eat without difficulty. Her Corrales catheter remains intact. Currently does not complain of nausea, vomiting, fever, or chills. Patient states pain has been adequately controlled. Physical Exam Lumbar Fusion: Status post surgical day number 2 Patient is awake, alert, and oriented 3 Vital signs stable Good chest excursion with deep inspiration and expiration Dorsiflexion, plantarflexion, and extensor hallucis longus positive sustained bilaterally No signs or symptoms of DVT; no calf pain; pneumatic cuffs intact bilateral lower extremities Optifoam dressings over the left paraspinals remains intact Patient is currently lying flat in bed Neurovascularly intact bilaterally lower extremities Corrales catheter intact Assessment: L4-5 revision posterior lateral decompression and fusion with removal of hardware at L3-4, L4-5, and interbody device at L4-5 with exploration of fusion at L3-4 Incidental durotomy of 1 mm at L4-5 L4-5 pseudoarthrosis L4-5 disc placed internal fixation Low back pain Left lower extremity radiculopathy History of previous decompression and fusion at L3-4 and L4-5 Lower extremity weakness Hypothyroidism Hearing loss Plan: 1. Patient had an incidental durotomy at L4-5 during surgical intervention. She has remained lying flat in bed since that time. She was experiencing a headache behind her eye yesterday but states since having coffee yesterday she has not had any headaches since that time. We will currently plan to have the patient continue lying flat until lunchtime today. We will plan to have the patient sit upright in bed at approximately 12 PM to see if she has any evidence of spinal headache. If the patient does not have any spinal headaches at that time we will plan to begin increasing her mobility and ambulation. If she does have evidence of spinal headache, we will plan to have her lie back down and remain lying flat in bed until tomorrow, 08/13/2020. Once we are able to increa se her mobility and ambulation, we will plan to have her work with physical therapy. MAPS has been reviewed today, 08/12/2020, with an Overall Overdose Risk Score of 280. An "Opiod Start Talking" Form has been signed and placed in the patient's chart. A prescription has been written for [place] 5 mg/325 mg 1-2 tab every 6 hours as needed for pain, dispensed #56. She may continue to take her previously prescribed home medications at home following discharge while avoiding anti-inflammatory medications, including mobile, over the next 6 weeks postoperatively. She may resume previously prescribed cyclobenzaprine. She is also given a prescription for ondansetron 4 mg tab, take 1 tab every 8 hours as needed for nausea, dispensed #21. Prescriptions have been sent to the [facility] pharmacy located within [facility]. 2. Continue pain control with IV and oral medications; will plan to begin weaning the patient off of IV narcotic medication in anticipation for discharge home in the next 1-2 days depending on her progress 3. Dressings to remain intact with Optifoam; patient may shower with dressings intact 4. We will discontinue the Corrales catheter once patient is able to increase her mobilization 5. Medical management can continue to manage patient for patient's other medical diagnoses including hypothyroidism 6. We will continue to follow the patient closely; depending on the patient's progress, we may plan for discharge home in the next 1-2 days 7. Patient can follow-up with Lyndon Smith PA-C or Dr. Juan Corona at [facility] in 2-3 weeks following discharge <Jersey Corona - Last Filed: 06/11/21 10:08> Progress Note - Text The patient is seen and examined at bedside. I reviewed the note above and agree with above. We'll try to have her sit up for lunch today as she is no longer having any evidence of headaches and she has been laying flat since her surgery. She is no longer having dry heaves. She is eating minimally thus far she feels she could eat better if she were sitting up. She says her legs are doing well. She has a little tingling down her left lower extremity which is unchanged but she has good strength. We will have her sit up today for lunch. As stated above if she is not having headaches we can increase her mobility and activity. If she is able to sit up we can try to remove the Corrales as well and try to have her urinate on her own. However if she is having headaches when upright she'll need to remain bed rest. If she is having evidence of spinal headaches when sitting up, It is likely that we will Keep her on bed rest for 48 hours more to allow adequate healing. I discussed this with her and the in house staff.
[2020-08-12] MEDS: ONDANSETRON 4 MG/2 ML VIAL IVP PRN (11:32)
[2020-08-12 11:54] LABS: Basophils # (A) 0.02 X 10*3/uL (0.00-0.10); Basophils % (A) 0.3 %; Eosinophils # (A) 0.09 X 10*3/uL (0.04-0.35); Eosinophils % (A) 1.2 %; HCT 25.2 % (37.2-46.3); HGB 7.7 g/dL (12.0-15.0); Lymphocytes % (A) 11.9 %; MCH 24.7 pg (27.0-32.0); MCHC 30.6 g/dL (32.0-37.0); MCV 80.8 fL (80.0-97.0); Mean Platelet Volume 9.9 fL (9.5-12.2); Monocytes # (A) 0.51 X 10*3/uL (0.20-1.00); Monocytes % (A) 6.7 %; Neutrophils # (A) 6.05 X 10*3/uL (1.80-7.70); Neutrophils % (A) 79.6 %; Platelet Count 236 X 10*3/uL (140-440); RBC 3.12 X 10*6/uL (4.10-5.20); RDW 16.3 % (11.5-14.5); WBC 7.59 X 10*3/uL (4.50-10.00)
[2020-08-12 13:12] LABS: African American GFR (CKD) 130.3 (60.0-200.0); Anion Gap 5.1 mmol/L (4.00-12.00); BUN/Creat Ratio 22.5 Ratio (12.00-20.00); Calcium 8.8 mg/dL (8.7-10.3); Carbon Dioxide 25.9 mmol/L (21.6-31.8); Magnesium 1.4 mg/dL (1.5-2.4); Non-African American GFR(CKD) 112.4 (60.0-200.0); Potassium 3.6 mmol/L (3.5-5.5)
--- NOTE | 2020-08-12 15:36 | P.PN ---
Subjective Progress Note Date: 08/12/20 (delayed charting seen at 1030) Principal diagnosis: delayed charting seen at 1045 Patient is a 60-year-old female with a history of chronic low back pain status post elective L4 5 revision laminectomy with decompression, asthma, GERD, and hypothyroidism. We're asked to consult regarding asthma. Secondary to dural puncture she is to remain flat per ortho/spine Patient seen and examined at bedside. Was able to eat some liquids last night. Less nausea some acid reflux. General: Ill appearing, no distress, appears at stated age Derm: warm, dry Head: atraumatic, normocephalic, symmetric Eyes: EOMI, no lid lag, anicteric sclera Mouth: no lip lesion, mucus membranes moist Cardiovascular: S1S2 reg, no murmur, positive posterior tibial pulse bilateral, Lungs: CTA bilateral, no rhonchi, no rales , no accessory muscle use Abdominal: soft, nontender to palpation, + guarding, no appreciable organomegaly Ext: no gross muscle atrophy, no edema, no contractures Neuro: CN II-XI grossly intact, no focal neuro deficits Psych: Alert, oriented, appropriate affect Intractable nausea, improved -Likely secondary to headache, pain medication use, and history of acid reflux -Continue with PPI, add Tums -Continue with pain control -Full liquid diet advance to regular as tolerated acute blood loss anemia, post op anticipated - follow CBC - check iron studies Chronic low back pain with revision L4 5 laminectomy and durotomy -Management per orthospine -Pain control Hypomagnesemia - replace and recheck in AM Hypothyroidism -Synthroid Asthma without exacerbation -When necessary bronchodilators Anemia, postoperative, anticipated -Follow CBC, no indication for transfusion at this point in time Thank you for allowing us to participate in the care of this pleasant patient. Do not hesitate to contact us with questions. Someone can be reached from the [facility] hospitalist group all hours of the day at [phone] or via [employer]. Objective - Vital Signs Vital signs: Vital Signs Temp 97.5 F L 08/12/20 14:00 Pulse 86 08/12/20 14:00 Resp 17 08/12/20 14:00 BP 130/70 08/12/20 14:00 Pulse Ox 94 L 08/12/20 14:00 Intake & Output 08/11/20 08/12/20 08/12/20 18:59 06:59 18:59 Intake Total 950 Output Total 500 300 Balance 450 -300 Intake: Intake, IV Titration 950 Amount Sodium Chloride 0.9% 1, 900 000 ml @ 75 mls/hr IV . [id number] [facility] Rx#:[id number] ceFAZolin 2 gm In Sodium 50 Chloride 0.9% 50 ml @ 100 mls/hr IVPB Q8HR [facility] Rx# :[id number] Output: Urine 500 300 Other: # Bowel Movements 0 0 - Labs CBC & Chem 7: 08/12/20 07:34 08/12/20 07:34 Labs: Abnormal Lab Results - Last 24 Hours (Table) 08/12/20 08/12/20 Range/Units 07:34 07:34 RBC 3.12 L (4.10-5.20) X 10*6/uL Hgb 7.7 L (12.0-15.0) g/dL Hct 25.2 L (37.2-46.3) % MCH 24.7 L (27.0-32.0) pg MCHC 30.6 L (32.0-37.0) g/dL RDW 16.3 H (11.5-14.5) % Creatinine 0.4 L (0.6-1.5) mg/dL BUN/Creatinine Ratio 22.50 H (12.00-20.00) Ratio Magnesium 1.4 L (1.5-2.4) mg/dL
[2020-08-12] MEDS: MAGNESIUM SULFATE-D5W PMX 1 GM in DEXTROSE/WATER 1 100ML.BAG IVPB SCH ×3 (16:26→20:15)
[2020-08-13] MEDS: HYDROmorphone 1 MG/ML 1 ML SYRINGE IVP PRN ×2 (00:14→05:06)
[2020-08-13 03:16] VITALS: PULSE 83; RESP 16
[2020-08-13] MEDS: HYDROcodone/APAP 5-325MG 1 EACH TAB PO PRN ×2 (06:02→13:00)
[2020-08-13] MEDS: LEVOTHYROXINE 50 MCG TAB PO SCH (06:02)
[2020-08-13] MEDS: SODIUM CHLORIDE 0.9% 1,000 ML IV SCH (06:03)
--- NOTE | 2020-08-13 06:44 | P.DS ---
Providers Date of admission: 08/12/20 21:54 Attending physician: Jersey Corona Consults: 08/10/20 11:52 Consult Physician Routine Consulting Provider: Vida Brody Consult Reason/Comments: Medical management Do you want consulting provider notified?: Yes Primary care physician: Ann Ash Hospital Course: The patient presented on the day of admission as per their operative note. She had recurrent stenosis and irritating internal fixation hardware at her lumbar spine and underwent revision decompression and fusion at L4 5 with exploration of fusion on Saturday, August 10. Intraoperatively she had sustained a small incidental durotomy. She had remain on bedrest postoperatively and is improving well. She has been up since yesterday and she is not having any evidence of any spinal headaches or issues with dural leak. She feels her back is doing better and the pain is adequately controlled with oral medications. She's been ambulatory. She feels her leg is doing somewhat better but she still having some numbness tingling in her left lower extremity. She's not having any worsening of her symptoms at her leg. She is voiding freely she is tolerating her small diet. She is passing gas appropriately. Physical Exam The incision site is clean dry and intact. There is no erythema no drainage. There is no purulence no evidence of infection. There is no active drainage there is no significant swelling. Abdomen soft and nontender. Chest has good excursion with deep inspiration and expiration. The patient has active and passive range of motion intact at the upper and lower extremities. There is no acute change in neurologic status. She has sustained dorsal flexion plantar flexion and EHL intact. She is able to lift her legs up off the bed independently. Hospital Course Postoperative day #3 status post revision decompression and fusion L4 5 for her irritating internal fixation and recurrent stenosis at L4 5 with history of lumbar spinal fusion. Good recovery from her incidental durotomy at the time of surgery without any evidence of further dural leak or spinal headaches. The patient has been making good progress postoperatively. They have completed the prophylactic antibiotics without any signs or symptoms of infection. The patient has been able to advance their diet, and is tolerating diet adequately. The pain was initially controlled with IV medications and is now controlled appropriately with oral medications. The patient has been able to increase their mobilization. she is mobilizing well in her room. She is not having evidence of spinal headaches. The patient has progressed appropriately. her pain is better controlled now with oral medications and muscle relaxers and we'll send her home with both those. She is no longer having any nausea or vomiting. I think they are in good stable condition for discharge today. They will be sent home with appropriate prescriptions. I answered their questions to the best of my ability in a language that they can understand and they are agreeable with the plan. They will follow up as directedIn approximately 2 weeks or sooner if she is having problems. Patient Condition at Discharge: Good Plan - Discharge Summary Discharge Rx Participant: Yes New Discharge Prescriptions: New HYDROcodone/APAP 5-325MG [[place] 5] 1 - 2 each PO Q6HR PRN #56 tab PRN Reason: Pain Ondansetron [Zofran] 4 mg PO Q8HR PRN #21 tab PRN Reason: Nausea Cyclobenzaprine [Flexeril] 10 mg PO TID PRN #60 tab PRN Reason: Spasms No Action Meloxicam [Mobic] 15 mg PO DAILY Levothyroxine Sodium [Synthroid] 50 mcg PO DAILY buPROPion HCL [Wellbutrin XL] 300 mg PO DAILY Estradiol [[place] 0.05 MG] 1 patch TRANSDERM WE Lansoprazole [Prevacid] 15 mg PO Q2D Hydrocodone/Acetaminophen [[place] 5-325] 1 - 2 each PO Q6HR PRN #56 tab PRN Reason: Pain Cyclobenzaprine [Flexeril] 10 mg PO DAILY PRN PRN Reason: Pain Levofloxacin [Levaquin] 500 mg PO DIRECTED Albuterol Inhaler [Ventolin Hfa Inhaler] 1 puff INHALATION DIRECTED PRN PRN Reason: sob Discharge Medication List Levothyroxine Sodium [Synthroid] 50 mcg PO DAILY 05/07/18 [History] Meloxicam [Mobic] 15 mg PO DAILY 05/07/18 [History] buPROPion HCL [Wellbutrin XL] 300 mg PO DAILY 05/07/18 [History] Estradiol [[place] 0.05 MG] 1 patch TRANSDERM WE 09/28/19 [History] Lansoprazole [Prevacid] 15 mg PO Q2D 09/28/19 [History] Hydrocodone/Acetaminophen [[place] 5-325] 1 - 2 each PO Q6HR PRN #56 tab 10/02/19 [Rx] Cyclobenzaprine [Flexeril] 10 mg PO DAILY PRN 08/05/20 [History] Levofloxacin [Levaquin] 500 mg PO DIRECTED 08/05/20 [History] Albuterol Inhaler [Ventolin Hfa Inhaler] 1 puff INHALATION DIRECTED PRN 08/09/20 [History] HYDROcodone/APAP 5-325MG [[place] 5] 1 - 2 each PO Q6HR PRN #56 tab 08/12/20 [Rx] Ondansetron [Zofran] 4 mg PO Q8HR PRN #21 tab 08/12/20 [Rx] Cyclobenzaprine [Flexeril] 10 mg PO TID PRN #60 tab 08/13/20 [Rx] Follow up Appointment(s)/Referral(s): Lyndon Smith PAC [PHYSICIAN BANK NOTE DESIGNER] - 2 Weeks (Patient may follow-up with Lyndon Smith PA-C or Dr. Juan Corona at [facility] in 2-3 weeks following discharge. ) Activity/Diet/Wound Care/Special Instructions: 1. Patient may shower with Optifoam dressing intact. 2. Patient may remove Optifoam dressing in 3 days (on Saturday) and shower without a dressing at that time. 3. Patient should refrain from driving until at least after their first follow- up appointment in the office. 4. Patient should avoid excessive bending, twisting, lifting; avoid overhead lifting; no lifting greater than 10 pounds 5. Take medications as prescribed 6. Do not soak in tub Discharge Disposition: HOME SELF-CARE
[2020-08-13 07:41] VITALS: BP 119/65; TEMP 97.8
[2020-08-13] MEDS: buPROPion XL 300 MG TAB.ER.24H PO SCH (09:39)
[2020-08-13] MEDS: PANTOPRAZOLE 40 MG TABLET PO SCH (09:39)
[2020-08-13] MEDS: SENNOSIDES-DOCUSATE SODIUM 1 EACH TAB PO SCH (09:39)
--- NOTE | 2020-08-13 10:37 | P.PN ---
Subjective Progress Note Date: 08/13/20 Principal diagnosis: delayed charting seen at 1045 Patient is a 60-year-old female with a history of chronic low back pain status post elective L4 5 revision laminectomy with decompression, asthma, GERD, and hypothyroidism. We're asked to consult regarding asthma. Secondary to dural puncture she is to remain flat per ortho/spine Patient seen and examined at bedside. tolerated toast for breakfast, nausea improved, pain controlled, wants to go home. - PCP follow her HgB anf iron closely she has required intermittent oral iron therapy. General: Ill appearing, no distress, appears at stated age Derm: warm, dry Head: atraumatic, normocephalic, symmetric Eyes: EOMI, no lid lag, anicteric sclera Mouth: no lip lesion, mucus membranes moist Cardiovascular: S1S2 reg, no murmur, positive posterior tibial pulse bilateral, Lungs: CTA bilateral, no rhonchi, no rales , no accessory muscle use Abdominal: soft, nontender to palpation, + guarding, no appreciable organomegaly Ext: no gross muscle atrophy, no edema, no contractures Neuro: CN II-XI grossly intact, no focal neuro deficits Psych: Alert, oriented, appropriate affect Intractable nausea, resolved -tolerating regular diet acute blood loss anemia, post op anticipated - follow CBC - check iron studies as outpatient, she states that her PCP follows iron levels closely, recommend 30 days of oral iron and repeat CBC in 1-2 weeks. Chronic low back pain with revision L4 5 laminectomy and durotomy -Management per orthospine -Pain control Hypomagnesemia - replaced and recheck pending Hypothyroidism -Synthroid Asthma without exacerbation -When necessary bronchodilators Anemia, postoperative, anticipated -Follow CBC, no indication for transfusion at this point in time Would await CBC prior to discharge. Thank you for allowing us to participate in the care of this pleasant patient. Do not hesitate to contact us with questions. Someone can be reached from the [facility] hospitalist group all hours of the day at [phone] or via [employer]. Objective - Vital Signs Vital signs: Vital Signs Temp 97.8 F 08/13/20 07:40 Pulse 83 08/13/20 07:40 Resp 16 08/13/20 07:40 BP 119/65 08/13/20 07:40 Pulse Ox 95 08/13/20 07:40 Intake & Output 08/12/20 08/13/20 08/13/20 18:59 06:59 18:59 Intake Total 1100 Output Total 800 Balance 300 Intake: Intake, IV Titration 1100 Amount Magnesium Sulfate-D5w Pmx 100 1 gm In Dextrose/Water 1 100ml.bag @ 100 mls/hr IVPB Q1H [facility] Rx#: [id number] Sodium Chloride 0.9% 1, 900 000 ml @ 75 mls/hr IV . [id number] [facility] Rx#:[id number] ceFAZolin 2 gm In Sodium 100 Chloride 0.9% 50 ml @ 100 mls/hr IVPB Q8HR [facility] Rx# :[id number] Output: Urine 800 Other: # Voids 2 # Bowel Movements 0 - Labs CBC & Chem 7: 08/12/20 07:34 08/12/20 07:34 Labs: Abnormal Lab Results - Last 24 Hours (Table) 08/12/20 08/12/20 Range/Units 07:34 07:34 RBC 3.12 L (4.10-5.20) X 10*6/uL Hgb 7.7 L (12.0-15.0) g/dL Hct 25.2 L (37.2-46.3) % MCH 24.7 L (27.0-32.0) pg MCHC 30.6 L (32.0-37.0) g/dL RDW 16.3 H (11.5-14.5) % Creatinine 0.4 L (0.6-1.5) mg/dL BUN/Creatinine Ratio 22.50 H (12.00-20.00) Ratio Magnesium 1.4 L (1.5-2.4) mg/dL
[2020-08-13 11:47] LABS: HCT 24.7 % (37.2-46.3); HGB 7.5 g/dL (12.0-15.0); MCH 24.8 pg (27.0-32.0); MCHC 30.4 g/dL (32.0-37.0); MCV 81.8 fL (80.0-97.0); Mean Platelet Volume 9.8 fL (9.5-12.2); Platelet Count 252 X 10*3/uL (140-440); RBC 3.02 X 10*6/uL (4.10-5.20); RDW 16.2 % (11.5-14.5); WBC 5.95 X 10*3/uL (4.50-10.00)
[2020-08-13 12:15] LABS: African American GFR (CKD) 130.3 (60.0-200.0); Anion Gap 5.1 mmol/L (4.00-12.00); Carbon Dioxide 27.9 mmol/L (21.6-31.8); Magnesium 1.6 mg/dL (1.5-2.4); Non-African American GFR(CKD) 112.4 (60.0-200.0); Potassium 3.3 mmol/L (3.5-5.5)
[2020-08-13] MEDS ORDERED: POTASSIUM CHLORIDE ER 20 MEQ TAB.ER PO STA (12:29)
--- NOTE | 2020-08-15 10:56 | CDI ---
Documentation Clarification Form Date: 08/15/2020 07:58:41 AM From: Aidee Grijalva RN CCDS Admit Date: 08/12/2020 09:54:00 PM Patient Name: Taylor Mueller Visit Number: [id number] Discharge Date: 08/13/2020 01:10:00 PM ATTENTION: The Clinical Documentation Specialists (CDI) and [facility] Coding Staff appreciate your assistance in clarifying documentation. Please respond to the clarification below the line at the bottom and electronically sign. The CDI & [facility] Coding staff will review the response and follow-up if needed. Please note: Queries are made part of the Legal Health Record. If you have any questions, please contact the author of this message via ITS. Dr. Jersey Corona Incidental durotomy is documented 08/10 Procedure Note and patient had Removal of deep hardware, Fusion, Revision of Laminectomy and decompression, Revision of Discectomy for decompression and Revision of TLIF. Additional clarification is requested regarding the relationship, if any, that exists between the diagnosis and the procedure. Patients Admitting Diagnosis: Displaced internal fixation L4 5, pseudoarthrosis L4 5, low back pain, lower extremity radiculopathy, history of prior decompression and &fusion L3 4 L4 5, lower extremity weakness, chronic low back pain. Post-Operative Diagnosis: Displaced internal fixation L4 5, pseudoarthrosis L4 5, low back pain, lower extremity radiculopathy, history of prior decompression and &fusion L3 4 L4 5, lower extremity weakness, chronic low back pain Incidental durotomy less than 1 mm at L4 5 Procedure performed: Removal of deep hardware L3 L4 L5 and interbody device L4 5. Exploration of fusion L3-4, L4-5 with findings of solid fusion L3-4 and pseudoarthrosis L4-5. Revision Laminectomy and decompression L4-5 with excision of significant scar tissue formation. Revision Minimally invasive Posterior Lateral decompression and fusion L4-5. Revision Minimally invasive Transforaminal lumbar interbody fusion with bone graft and autogenous bone. Revision Discectomy for decompression. Local autogenous bone grafting. Use of bone graft extenders. History/Risk Factors: 60-year-old female presents to [facility] with recurrent stenosis and irritating hardware. The patient underwent an elective Revision, Decompression and Fusion at L4-5 with exploration of fusion. Clinical Indicators: During the &dissection there was note of a small incidental durotomy. It was less than 1 mm and apparently on the volar aspect of the dura itself. This occurred during takedown of scar tissue. It appeared to sit remained stable. Upon removing the interbody device as [address] Tisseel over the area and it appeared to have excellent coverage and control of the durotomy. Procedure Note 08/10. Treatment: 08/10 Tisseel x1; 08/10 Bedrest postoperatively What relationship, if any, exists between the diagnosis of Incidental durotomy and the procedure: [ ] Incidental durotomy is a complication of surgical procedure [ ] Incidental durotomy is an expected outcome of the surgical procedure [ ] Incidental durotomy is related to patients co-morbid condition(s) of scar tissue & not a complication of the procedure [ ] Other please specify ____ [ ] Unable to determine (Template Last Revised: May 2020) Incidental durotomy was a small complication at the time of the surgical procedure which was treated intraoperatively at the time. It is a well known, common complication, and was treated appropriately in surgery. KORIN
== END 2020-08-13 13:10 | disposition home or self-care (01) | DRG 460 ==
LOC: INTOOBSV 06:05 → 2ORMAIN 06:05 → 4SSUR 12:18 → OBSVTOIN 08-12 21:54
PROVIDERS: ADMIT Orthopaedic Surgery Orthopaedic Surgery of the Spine; ATTEND Orthopaedic Surgery Orthopaedic Surgery of the Spine
PROC: 01NB0ZZ Release Lumbar Nerve, Open Approach (ICD-10-PCS; 2020-08-10)
PROC: 0SP004Z Removal of Internal Fixation Device from Lumbar Vertebral Joint, Open Approach (ICD-10-PCS; 2020-08-10)
PROC: 0SG00AJ Fusion of Lumbar Vertebral Joint with Interbody Fusion Device, Posterior Approach, Anterior Column, Open Approach (ICD-10-PCS; principal; 2020-08-10 07:30)
DX: T84.226A Displacement of internal fixation device of vertebrae, initial encounter (principal); M96.0 Pseudarthrosis after fusion or arthrodesis; G97.41 Accidental puncture or laceration of dura during a procedure; D62 Acute posthemorrhagic anemia; T84.038A Mechanical loosening of other internal prosthetic joint, initial encounter; M54.16 Radiculopathy, lumbar region; M48.061 Spinal stenosis, lumbar region without neurogenic claudication; Y83.8 Other surgical procedures as the cause of abnormal reaction of the patient, or of later complication, without mention of misadventure at the time of the procedure; E03.9 Hypothyroidism, unspecified; J45.909 Unspecified asthma, uncomplicated; K21.9 Gastro-esophageal reflux disease without esophagitis; E83.42 Hypomagnesemia; Z20.822 Contact with and (suspected) exposure to COVID-19; Z87.891 Personal history of nicotine dependence; Z79.890 Hormone replacement therapy; Z79.1 Long term (current) use of non-steroidal anti-inflammatories (NSAID); F41.9 Anxiety disorder, unspecified; Z90.710 Acquired absence of both cervix and uterus; H91.90 Unspecified hearing loss, unspecified ear; G89.29 Other chronic pain; F32.9 Major depressive disorder, single episode, unspecified
CPT/HCPCS: 72020; 80048; 83735; 85025; 85027; 86850; 86900; 86901; 87635

== ENCOUNTER → 2021-04-06 | Outpatient (CLI) | payer BC ==
[2021-04-06 09:53] VITALS: BP 125/85; PULSE 72; RESP 18; TEMP 97.8
--- NOTE | 2021-04-06 10:04 | P.CON ---
Consult Note - . Consult date: 04/06/21 Assessment/Plan:: HISTORY OF PRESENT ILLNESS: 61-year-old female as a referral from Dr. Corona presents today with mid to lower back pain for the past 20 years for an evaluation. Patient states that her lower back pain is 7 out of 10 in intensity, dull and achy, but can aggravate to a 10 out of 10 in intensity with activity. At times, pain is sharp and shooting down the left buttock and left hip region. Patient states pain is provoked with standing for periods of 30 minutes or more and bending. Pain is relieved with medications, topical, injections, ice, heat, physical therapy, chiropractic treatments, home exercise regimen, use of a TENS device, massage, repositioning and rest. Medications [place] 5/325mg , Neurontin 300mg, Flexeril 10mg from Dr Corona Past Medical History: GERD/Reflux, Musculoskeletal Disorder, Thyroid Disorder Additional Past Medical History / Comment(s): past hx of asthma, hx anemia., hypothyroid, Back pain . History of Any Multi-Drug Resistant Organisms: None Reported Past Surgical History: Back Surgery, Bariatric Surgery, Cholecystectomy, Hysterectomy, Orthopedic Surgery, Tonsillectomy Additional Past Surgical History / Comment(s): HX OF LAP BAND AND CHANGED TO GASTRIC SLEEVE (?2010), BACK SURGERY X4 WITH FUSION L-5 S-1. and CAGE/ Frederic placements, TFESI x 2, RECTOCELE & CYSTOCELE, DEREJE HAND SURGERY FOR THUMB JOINTS AND TRIGGER FINGER (STATES LIGAMENTS TAKEN FROM HER ARM). Past Anesthesia/Blood Transfusion Reactions: Previous Problems w/ Anesthesia, Postoperative Nausea & Vomiting (PONV) Additional Past Anesthesia/Blood Transfusion Reaction / Comm: STATES SHE "GOES OUT EASILY". Past Psychological History: Depression Smoking Status: Former smoker Past Alcohol Use History: None Reported Additional Past Alcohol Use History / Comment(s): QUIT SMOKING OVER 25 YEARS AGO, STARTED SMOKING AGE 11. Past Drug Use History: None Reported All: NKDA Meds: See list REVIEW OF ORGAN SYSTEMS: CONSTITUTIONAL: No fevers or chills. No recent weight loss. HEENT: No visual acuity loss, eye pain, difficulties with hearing. No nosebleeds. No difficulty swallowing. RESPIRATORY: Denies any troubles with breathing or dyspnea on exertion. CARDIOVASCULAR: Denies any chest pain, palpitations, or recent heart attacks. GASTROINTESTINAL: Denies fatty food intolerance. Has change in bowel habits and gas bloat. GENITOURINARY: Denies any blood in urine. Has increased urinary frequency. NEUROLOGICAL: + numbness and tingling along the distal extremities. No seizure disorders or headaches. MUSCULOSKELETAL: + back pain SKIN: No skin cancer. No rash. PSYCHIATRIC: Denies current depression or suicidal thoughts. ENDOCRINE: Denies current thyroid disorders. Denies any blood sugar glucose intolerance. HEME/LYMPHATIC: Denies any lumps and bumps around the neck. History of deep venous thrombosis. ALLERGY/IMMUNOLOGY: No immunoglobulin therapy. No immune deficiencies. BREAST: Denies current breast lumps, pain or nipple discharge. Physical Examinations : Constitutional : Cooperative , not in acute distress . HEENT: Neck supple. No Lymphadenopathy. Normal thyroid size . Eyes no ptosis , no icterus, no photophobia . Hearing intact. Normal oropharynx. No Thrush. Respiratory : Chest clear to auscultations bilaterally. No wheezing. No rhonchi. Cardiovascular : Regular rate and rhythm , S1 / S2. No S3 . No S4. Gastrointestinal : Abdomen soft. No tenderness. Bowel sounds x 4. No organomegaly . Genitourinary : Deferred. Neurologic : Cranial nerve II to XII intact. No focal neurological deficits. Psychiatric : alert & oriented x 3. Matching mood & appropriate affect. Judgment & insight intact. Lymphatic No Lymphadenopathy. Musculoskeletal : Cervical Spine Motor strength in the deltoid and biceps: Normal right side. Normal Left side Motor strength biceps and the wrist extensors: Normal right side . Normal left side Motor strength in the triceps muscle: Normal right side. Normal left side Deep tendon reflexes: Normal at the biceps. Normal at Brachioradialis. Normal at triceps Cervical facet loading test: positive bilaterally Spurling test: positive bilaterally Neck distraction test: positive bilaterally Gladis sign: positive bilaterally Lumbar spine Motor strength lower extremities ,thigh and legs 5/5 Right side , 5/5 Left side Deep tendon reflexes : Normal Knee Jerk. Normal Ankle Jerk Moderate vertebral body tenderness over the L3 L4 L5 S1 Lumbar facet Loading Test: positive Right / positive Left over the L4 to L5 and L5 to S1 Range of motion of the lumbar spine Flexion 30 degrees, extension 10 degrees Straight Leg Raise test: Left/ Right positive at <40 degree Elvia test: positive right / positive left. Severe tenderness over the Sacroiliac joint on the Right / Left side Gaenslen test: positive bilaterally Seated flexion test: positive bilaterally. IMAGING MRI of the Lumbar Spine from July 0809/2020 reviewed Assessment/ Plan : Recommendation office left SI joint injection May benefit from a series depending on its patient's pain relief Denies aspirin or anticoagulant use Risk benefits of procedure discussed and patient verbalized understanding All questions answered I have spent greater than 50 minutes on patient care today. Dr Pennington was available by phone for the evaluation of this patient. The time was used to review the medical records including relevant urine studies and Prescription history (MAPs), review of the available imaging, evaluation and examination of the patient, coordination of care with the medical staff and if applicable referring physicians, as well as creation of the medical record PQRS Measure Charge Sheet Mode of Arrival: Ambulatory - Pain Location Lower Back Non-Pharmacological Interventions: Chiropractic Treatment, Exercise, Heat, Home Exercise, Ice, Inactivity, Massage, Physical Therapy, Stretching, TENS Unit Pharmacological Interventions: Epidural, Medication, PRN Medication, Topical Medication PQRS Narrative: Smoking Status Never smoker Blood Pressure 125/85 Pain Intensity [Lower Back] 7 Scale Used Numeric (1 - 10) Hx Alcohol Use (MH) No Home Medications: Ambulatory Orders Levothyroxine Sodium [Synthroid] 50 mcg PO DAILY 05/07/18 Meloxicam [Mobic] 15 mg PO DAILY 05/07/18 buPROPion HCL [Wellbutrin XL] 300 mg PO DAILY 05/07/18 Estradiol [[place] 0.05 MG] 1 patch TRANSDERM WE 09/28/19 Lansoprazole [Prevacid] 15 mg PO Q2D 09/28/19 Albuterol Inhaler [Ventolin Hfa Inhaler] 1 puff INHALATION DIRECTED PRN 08/09/20 HYDROcodone/APAP 5-325MG [[place] 5] 1 - 2 each PO Q6HR PRN #56 tab 08/12/20 Cyclobenzaprine [Flexeril] 10 mg PO TID PRN #60 tab 08/13/20
== END ==
LOC: PNWHC3 09:16
PROVIDERS: ATTEND Physician Assistant Medical
DX: M51.36 Other intervertebral disc degeneration, lumbar region (principal); M51.24 Other intervertebral disc displacement, thoracic region; M51.26 Other intervertebral disc displacement, lumbar region; K21.9 Gastro-esophageal reflux disease without esophagitis; J45.909 Unspecified asthma, uncomplicated; E03.9 Hypothyroidism, unspecified; F32.A Depression, unspecified; Z87.891 Personal history of nicotine dependence; Z79.890 Hormone replacement therapy; Z79.899 Other long term (current) drug therapy
CPT/HCPCS: 99211

== ENCOUNTER 2021-04-20 07:57 | Day surgery (SDC) | payer BC ==
[2021-04-17 15:27] VITALS: BMI 21.7
[~2021-04-20 07:57] MED LIST changes: +LACTATED RINGERS 1,000 ML IV SCH; +LIDOCAINE 1% (10MG/ML) FOR IV START INTRADERMA PRN; -ceFAZolin 1,000 MG in SODIUM CHLORIDE 0.9% IRRIGATIO 1,000 ML IRRIGATION PRN
[2021-04-20 08:40] VITALS: TEMP 98.1
[2021-04-20] MEDS ORDERED: LIDOCAINE 1% INJ 10MG/ML (20 ML MDV) ONE (09:49)
[2021-04-20] MEDS ORDERED: PROPOFOL 10 MG/ML 20 ML VIAL IV ONE (09:49)
--- NOTE | 2021-04-20 09:52 | P.GSHP ---
History of Present Illness H&P Date: 04/20/21 Chief Complaint: Anemia, gastritis This is a 61-year-old female who presents today for EGD. She's had issues with anemia. She is undergoing EGD diet for possible gastritis. Past Medical History Past Medical History: Asthma, Thyroid Disorder Additional Past Medical History / Comment(s): current anemia, past hx of asthma, hx anemia., hypothyroid, Back pain . History of Any Multi-Drug Resistant Organisms: None Reported Past Surgical History: Back Surgery Additional Past Surgical History / Comment(s): lumbar fusion, total 6 back zavala rgeries, cystocele x 2, rectocele, tendon surgery connor thumbs, hardware removal and revision or spinal decompression 08/22 Past Anesthesia/Blood Transfusion Reactions: Previous Problems w/ Anesthesia, Family History of Problems w/ Anesthesia, Postoperative Nausea & Vomiting (PONV) Additional Past Anesthesia/Blood Transfusion Reaction / Comment(s): STATES SHE "GOES OUT EASILY"., mom has PONV Smoking Status: Former smoker - Past Family History Mother Family Medical History: No Reported History Medications and Allergies Home Medications Medication Instructions Recorded Confirmed Type Levothyroxine Sodium [Synthroid] 50 mcg PO QAM 05/07/18 04/17/21 History Meloxicam [Mobic] 15 mg PO DAILY 05/07/18 04/17/21 History buPROPion HCL [Wellbutrin XL] 300 mg PO QAM 05/07/18 04/17/21 History Estradiol [[place] 0.05 MG] 1 patch TRANSDERM Q10D 09/28/19 04/17/21 History Lansoprazole [Prevacid] 15 mg PO Q2D 09/28/19 04/17/21 History Albuterol Inhaler [Ventolin Hfa 1 puff INHALATION DIRECTED PRN 08/09/2004/04 History Inhaler] HYDROcodone/APAP 5-325MG [[place] 5] 1 - 2 each PO Q6HR PRN #56 tab 08/12/20 04/17/21 Rx Cyclobenzaprine [Flexeril] 10 mg PO TID PRN #60 tab 08/13/20 04/17/21 Rx Allergies Allergy/AdvReac Type Severity Reaction Status Date / Time No Known Allergies Allergy Verified 04/20/21 08:33 Surgical - Exam Vital Signs Temp Pulse Resp BP Pulse Ox 98.1 F 86 16 130/87 99 02/17/22 08:38 04/20/21 08:38 04/20/21 08:38 04/20/21 08:38 04/20/21 08:38 - General well developed, well nourished, no distress - Eyes PERRL - ENT normal pinna - Neck no masses - Respiratory normal expansion - Cardiovascular Rhythm: regular - Abdomen Abdomen: soft, non tender Assessment and Plan Assessment: Anemia. We'll perform EGD evaluate for gastritis.
--- NOTE | 2021-04-20 10:00 | P.OP ---
Date of Procedure: 04/20/21 Preoperative Diagnosis: Anemia Gastritis Postoperative Diagnosis: Erosive esophagitis Procedure(s) Performed: EGD Anesthesia: MAC Surgeon: Eric Brown Pathology: other (Esophagus) Condition: stable Disposition: PACU Description of Procedure: The patient's placed on the endoscopy table in the lateral position. She received IV sedation. The gastroscope placed oropharynx passed in the esophagus and stomach. Scope was placed through the pylorus. First and second portion of the duodenum appeared normal. Scope was then brought back into the stomach. Patient appears sleeve gastric. There is no unsteady inflammatory changes of the stomach. The scope was brought back and at the level of the GE junction the distal esophagus was inflamed. Several biopsies performed. There is evidence of erosive esophagitis. The proximal esophagus. Normal. There is no significant hiatal hernia. The scope was withdrawn for patient.
[2021-04-20 10:32] VITALS: BP 115/77; PULSE 62; RESP 20
== END 2021-04-20 10:50 | disposition home or self-care (01) ==
LOC: ORWHC2ENDO 07:57
PROVIDERS: ATTEND Surgery
DX: K20.0 Eosinophilic esophagitis (principal); K29.70 Gastritis, unspecified, without bleeding; K22.10 Ulcer of esophagus without bleeding; J45.909 Unspecified asthma, uncomplicated; E03.9 Hypothyroidism, unspecified; D64.9 Anemia, unspecified; M54.9 Dorsalgia, unspecified; Z98.1 Arthrodesis status; Z98.890 Other specified postprocedural states; Z87.891 Personal history of nicotine dependence; Z79.1 Long term (current) use of non-steroidal anti-inflammatories (NSAID); Z79.890 Hormone replacement therapy; Z79.899 Other long term (current) drug therapy
CPT/HCPCS: 88305; 43239; J2001; J2704

== ENCOUNTER 2021-05-11 07:49 | Day surgery (SDC) | payer BC ==
[2021-05-09 17:06] VITALS: BMI 21.9
[2021-05-11] MEDS ORDERED: LACTATED RINGERS 1,000 ML IV SCH (07:56)
[2021-05-11 08:32] VITALS: RESP 16; TEMP 98.3
[2021-05-11] MEDS ORDERED: LIDOCAINE 1% (10MG/ML) FOR IV START INTRADERMA ONE (08:39)
[2021-05-11] MEDS ORDERED: PROPOFOL 10 MG/ML 20 ML VIAL IV ONE (08:46)
--- NOTE | 2021-05-11 08:47 | P.GSHP ---
History of Present Illness H&P Date: 05/11/21 Chief Complaint: GI bleed Is a 61-year-old female who presents today for colonoscopy. She's had issues rectal bleeding. Past Medical History Past Medical History: Asthma, GERD/Reflux, Musculoskeletal Disorder, Thyroid Disorder Additional Past Medical History / Comment(s): "Erosive esophagus." Hx of asthma, anemia-currently receiving iron infusions, hypothyroid, back pain. History of Any Multi-Drug Resistant Organisms: None Reported Past Surgical History: Back Surgery, Bladder Surgery, Cholecystectomy, Hysterectomy, Orthopedic Surgery Additional Past Surgical History / Comment(s): Lumbar fusion X2, total 6 back surgeries, cystocele X2, rectocele, tendon surgery bilateral thumbs, hardware removal and revision or spinal decompression 08/22, EGD, colonoscopy. Past Anesthesia/Blood Transfusion Reactions: Previous Problems w/ Anesthesia, Postoperative Nausea & Vomiting (PONV) Additional Past Anesthesia/Blood Transfusion Reaction / Comment(s): STATES SHE "GOES OUT EASILY". Past Psychological History: No Psychological Hx Reported Smoking Status: Former smoker Past Alcohol Use History: None Reported Additional Past Alcohol Use History / Comment(s): QUIT SMOKING OVER 25 YEARS AGO, STARTED SMOKING AGE 11. Past Drug Use History: None Reported - Past Family History Mother Family Medical History: No Reported History Medications and Allergies Home Medications Medication Instructions Recorded Confirmed Type Levothyroxine Sodium [Synthroid] 50 mcg PO QAM 05/07/18 05/09/21 History Meloxicam [Mobic] 15 mg PO DAILY 05/07/18 05/09/21 History buPROPion HCL [Wellbutrin XL] 300 mg PO QAM 05/07/18 05/09/21 History Estradiol [[place] 0.05 MG] 1 patch TRANSDERM Q10D 09/28/19 05/09/21 History Lansoprazole [Prevacid] 15 mg PO Q2D 09/28/19 05/09/21 History Albuterol Inhaler [Ventolin Hfa 1 puff INHALATION DIRECTED PRN 08/09/20 05/09/21 History Inhaler] HYDROcodone/APAP 5-325MG [[place] 5] 1 - 2 each PO Q6HR PRN #56 tab 08/12/20 05/09/21 Rx Cyclobenzaprine [Flexeril] 10 mg PO TID PRN #60 tab 08/13/20 05/09/21 Rx Omeprazole [PriLOSEC] 40 mg PO QAM 05/09/21 05/09/21 History Sucralfate [Carafate] 1 gm PO BID 05/09/21 05/09/21 History Allergies Allergy/AdvReac Type Severity Reaction Status Date / Time No Known Allergies Allergy Verified 05/09/21 17:01 Surgical - Exam Vital Signs Temp Pulse Resp BP Pulse Ox 98.3 F 73 16 131/84 98 05/11/21 08:31 05/11/21 08:31 05/11/21 08:31 05/11/21 08:31 05/11/21 08:31 - General well developed, well nourished, no distress - Eyes PERRL - ENT normal pinna - Neck no masses - Respiratory normal expansion - Cardiovascular Rhythm: regular - Abdomen Abdomen: soft, non tender Assessment and Plan Assessment: Rectal bleeding. We'll perform colonoscopy
--- NOTE | 2021-05-11 09:09 | P.OP ---
Date of Procedure: 05/11/21 Preoperative Diagnosis: GI bleed Postoperative Diagnosis: Hemorrhoids Diverticulosis Procedure(s) Performed: Colonoscopy Anesthesia: MAC Surgeon: Eric Brown Pathology: none sent Condition: stable Disposition: PACU Description of Procedure: Patient's placed on the endoscopy table in the lateral position. She received IV sedation. Digital rectal exam was performed which revealed internal/external hemorrhoids. The flexible colonoscope was then placed patient anus passed throughout the entire colon. The ileocecal valve was not visualized secondary to a large amount liquid stool in the colon. The colon was quite tortuous. Scope was withdrawn. The ascending colon and transverse colon appeared normal. In the descending sigmoid colon there was diverticular changes. The; was quite tortuous. Scope summer back the rectum this appeared normal scope withdrawn for patient. There is no evidence of any GI bleed. His presumed patient may have bleeding from hemorrhoids.
[2021-05-11 09:36] VITALS: BP 136/91; PULSE 70
== END 2021-05-11 09:54 | disposition home or self-care (01) ==
LOC: ORWHC2ENDO 07:49
PROVIDERS: ATTEND Surgery
DX: K57.31 Diverticulosis of large intestine without perforation or abscess with bleeding (principal); K64.8 Other hemorrhoids; K64.4 Residual hemorrhoidal skin tags; J45.909 Unspecified asthma, uncomplicated; K21.9 Gastro-esophageal reflux disease without esophagitis; E03.9 Hypothyroidism, unspecified; D64.9 Anemia, unspecified; M54.9 Dorsalgia, unspecified; M79.9 Soft tissue disorder, unspecified; Z87.891 Personal history of nicotine dependence; Z79.890 Hormone replacement therapy; Z79.899 Other long term (current) drug therapy; Z98.890 Other specified postprocedural states; Z90.49 Acquired absence of other specified parts of digestive tract; Z90.710 Acquired absence of both cervix and uterus; Z98.1 Arthrodesis status
CPT/HCPCS: 45378; J2704

== ENCOUNTER → 2021-12-06 | Outpatient (CLI) | payer BC ==
--- NOTE | 2021-12-11 08:06 | MM ---
Reason for Exam: Screening (asymptomatic). Last mammogram was performed 4 year(s) and 5 month(s) ago. Patient History: Menarche at age 10. First Full-Term at age 16. Left ovary removed at age 41. Right ovary removed at age 41. Hysterectomy at age 41. Postmenopausal. Currently using Estrogen, starting at age 41. Risk Values: Kathe 5 year model risk: 1.2%. NCI Lifetime model risk: 5.5%. Prior Study Comparison: 07/03/2017 Bilateral MG screening mammo w CAD - 2, [facility]. Tissue Density: The breast tissue is heterogeneously dense. This may lower the sensitivity of mammography. Findings: Analyzed By CAD. There is no suspicious group of microcalcifications or new suspicious mass in either breast. Benign calcifications within both breasts. Overall Assessment: Benign, BI-RAD 2 Management: Screening Mammogram of both breasts in 1 year. A clinical breast exam by your physician is recommended on an annual basis and results should be correlated with mammographic findings. Electronically signed and approved by: Vicente Huang D.O.
== END | disposition home or self-care (01) ==
LOC: RADMAMWWP 11:12
PROVIDERS: ATTEND Family Medicine
DX: Z12.31 Encounter for screening mammogram for malignant neoplasm of breast (principal)
CPT/HCPCS: 77063; 77067

== ENCOUNTER → 2022-12-07 | Outpatient (CLI) | payer MEDICARE ==
--- NOTE | 2022-12-10 09:05 | MM ---
Reason for Exam: Screening (asymptomatic). Last screening mammogram was performed 12 month(s) ago. Patient History: Menarche at age 10. First Full-Term at age 16. Left ovary removed at age 41. Right ovary removed at age 41. Hysterectomy at age 41. Postmenopausal. Currently using Estrogen, starting at age 41. Risk Values: Kathe 5 year model risk: 1.2%. NCI Lifetime model risk: 5.3%. Prior Study Comparison: 07/03/2017 Bilateral MG screening mammo w CAD - 2, [facility]. 12/06/2021 Bilateral MG 3D screening mammo w/cad, [facility]. Tissue Density: The breast tissue is heterogeneously dense. This may lower the sensitivity of mammography. Findings: Analyzed By CAD. There is no suspicious group of microcalcifications or new suspicious mass in either breast. Benign calcifications within both breasts. Overall Assessment: Benign, BI-RAD 2 Management: Screening Mammogram of both breasts in 1 year. A clinical breast exam by your physician is recommended on an annual basis and results should be correlated with mammographic findings. Note on Kathe scores and lifetime risk: 1. A Kathe score greater than 3% is considered moderate risk. If this is the case, consider specialist referral to assess eligibility for a risk reducing agent. If overall lifetime risk for the development of breast cancer is 20% or higher, the patient may qualify for future screening with alternating mammogram and breast MRI. Electronically signed and approved by: Vicente Huang D.O.
== END | disposition home or self-care (01) ==
LOC: RADMAMWWP 13:17
PROVIDERS: ATTEND Family Medicine
DX: Z12.31 Encounter for screening mammogram for malignant neoplasm of breast (principal); Z78.0 Asymptomatic menopausal state
CPT/HCPCS: 77063; 77067

== ENCOUNTER → 2022-12-27 | Outpatient (CLI) | payer MEDICARE, BC ==
--- NOTE | 2022-12-27 13:25 | US ---
EXAMINATION TYPE: US pelvic limited DATE OF EXAM: 12/27/2022 COMPARISON: NONE CLINICAL INDICATION: Female, 62 years old with history of R10.2 PELVIC AND PERINEAL PAIN; during rece nt exam patient has pressure sensation within pelvis, no pain, total hysterectomy 20yrs ago TECHNIQUE: TA. Transabdominal sonographic images of the pelvis were acquired. Patient did not want TV if not medically necessary. Tech did not seen any reason to TV with known total hysterectomy Date of LMP: 20 years ago EXAM MEASUREMENTS: Uterus: Surgically absent Endometrial Stripe: Surgically absent Right Ovary: Surgically absent Left Ovary: Surgically absent 1. Uterus: Surgically absent 2. Endometrium: Surgically absent 3. Right Ovary: Surgically absent 4. Left Ovary: Surgically absent 5. Bilateral Adnexa: wnl 6. Posterior cul-de-sac: wnl IMPRESSION: No evidence for acute process.
== END | disposition home or self-care (01) ==
LOC: RADUSWWP 12:27
PROVIDERS: ATTEND Family Medicine
DX: R10.2 Pelvic and perineal pain (principal); Z90.710 Acquired absence of both cervix and uterus
CPT/HCPCS: 76857

== ENCOUNTER → 2023-01-07 | Outpatient (CLI) | payer MEDICARE ==
--- NOTE | 2023-01-07 11:12 | XR ---
EXAMINATION TYPE: XR chest 2V DATE OF EXAM: 01/07/2023 10:22 AM CLINICAL INDICATION:Female, 62 years old with history of PRE SURGICAL TESTING; [facility] COMPARISON: Chest radiographs from 08/02/2020 TECHNIQUE: XR chest 2V Frontal and lateral views of the chest. FINDINGS: Lungs/Pleura: There is no evidence of pleural effusion, focal consolidation, or pneumothorax. Pulmonary vascularity: Unremarkable. Heart/mediastinum: Cardiomediastinal silhouette is unremarkable. Musculoskeletal: No acute osseous pathology. IMPRESSION: No acute cardiopulmonary disease/process.
[2023-01-07 11:56] LABS: INR 0.9 (<1.2); Partial Thromboplastin Time 26.3 sec (22.0-30.0); Prothrombin Time 10.2 sec (10.0-12.5)
[2023-01-07 15:33] LABS: Basophils # (A) 0.03 X 10*3/uL (0.00-0.10); Basophils % (A) 0.6 %; Eosinophils # (A) 0.17 X 10*3/uL (0.04-0.35); Eosinophils % (A) 3.6 %; HCT 41.5 % (37.2-46.3); HGB 13.4 d/dL (12.0-15.0); Lymphocytes # (A) 1.42 X 10*3/uL (0.90-5.00); Lymphocytes % (A) 30.1 %; MCH 29.8 pg (27.0-32.0); MCHC 32.3 d/dL (32.0-37.0); MCV 92.2 FL (80.0-97.0); Mean Platelet Volume 9.2 FL (9.5-12.2); Monocytes % (A) 8.5 %; NRBC Per 100 WBC 0 X 10*3/uL (0.00-0.01); Neutrophils # (A) 2.68 X 10*3/uL (1.80-7.70); Platelet Count 307 X 10*3/uL (140-440); RDW 12.1 % (11.5-14.5); WBC 4.71 X 10*3/uL (4.50-10.00)
[2023-01-07 16:20] LABS: Appearance,Urine Clear (Clear); Bilirubin,Urine Negative (Negative); Blood,Urine Negative (Negative); Color,Urine Yellow (Yellow); Ketones,Urine Negative (Negative); Nitrite,Urine Negative (Negative); Specific Gravity,Urine 1.006 (1.001-1.030); Urobilinogen,Urine 0.2 E.U./DL
[2023-01-07 22:19] LABS: Blood Urea Nitrogen 19.8 mg/dL (9.0-27.0); Calcium 9.9 mg/dL (8.7-10.3); Carbon Dioxide 28.2 mmol/L (21.6-31.8); Chloride 103 mmol/L (96-109); Glucose 94 mg/dL (70-110); Potassium 4.7 mmol/L (3.5-5.5); Sodium 140 mmol/L (135-145)
== END | disposition home or self-care (01) ==
LOC: LABPAT 10:09
PROVIDERS: ATTEND Orthopaedic Surgery Orthopaedic Surgery of the Spine
DX: Z01.818 Encounter for other preprocedural examination (principal)
CPT/HCPCS: 36415; 71046; 80048; 81003; 85025; 85610; 85730; 86850; 86900; 86901; 87070; 93005

== ENCOUNTER 2023-01-16 11:17 | Inpatient (IN) | payer MEDICARE, BC ==
[2023-01-10 10:40] VITALS: BMI 21.6
[~2023-01-16 11:17] MED LIST changes: +DEXAMETHASONE SOD PHOSPHATE 4 MG/ML 1 ML VIAL IV ONE; +HYDROmorphone 0.5 MG/0.5 ML SYRINGE IVP PRN; -LACTATED RINGERS 1,000 ML IV SCH; -LIDOCAINE 1% (10MG/ML) FOR IV START INTRADERMA PRN; +ONDANSETRON 4 MG/2 ML VIAL IVP ONE; +ceFAZolin 1,000 MG in SODIUM CHLORIDE 0.9% IRRIGATIO 1,000 ML IRRIGATION PRN
[2023-01-16] MEDS: LACTATED RINGERS 1,000 ML IV SCH (12:20)
[2023-01-16] MEDS ORDERED: THROMBIN (BOVINE) 5,000 UNIT VIAL TOPICAL ONE (14:13)
[2023-01-16] MEDS ORDERED: LIDOCAINE 0.5%-EPI 1:200,000 50 ML VIAL SQ ONE (14:13)
[2023-01-16] MEDS ORDERED: GELATIN SPONGE,ABSORB (LARGE) 1 EACH SPONGE TOPICAL ONE (14:13)
[2023-01-16] MEDS ORDERED: LACTATED RINGERS 1,000 ML IV ONE (16:07)
[2023-01-16] MEDS ORDERED: BENZOCAINE/MENTHOL LOZENG 1 EACH LOZENGE MUCOUS MEM PRN (16:55)
[2023-01-16] MEDS ORDERED: HYDROmorphone 1 MG/ML 1 ML SYRINGE IVP PRN (16:55)
[2023-01-16] MEDS ORDERED: HYDROmorphone 0.5 MG/0.5 ML SYRINGE IVP PRN (16:55)
[2023-01-16] MEDS ORDERED: SENNOSIDES-DOCUSATE SODIUM 1 EACH TAB PO PRN (16:56)
[2023-01-16] MEDS ORDERED: ONDANSETRON 4 MG/2 ML VIAL IVP PRN (16:56)
[2023-01-16] MEDS ORDERED: CYCLOBENZAPRINE 10 MG TAB PO PRN (16:57)
--- NOTE | 2023-01-16 17:12 | P.OP ---
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, history of prior decompression fusion L3 to S1 with retained hardware, low back pain Postoperative Diagnosis:Severe spinal stenosis L2-3, lower extremity radiculopathy, neurogenic claudication, 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 Corona [employer] Mig Welder: Lyndon Polanco is present throughout the entire the case persistence during positioning, dissection, exposure, visualization, and all crucial elements of the case as well as closure. Anesthesia: General anesthesia Estimated blood loss: Approximately 350 mL Complications: None apparent Components implanted: K2M striker [place] cannulated pedicle screws 2 at L2 measuring 5.5 x 50 mm with an X half jog 40 mm connecting rods, with DBX bone putty and bone matrix sheets to supplemental local autogenous bone graft Disposition: To recovery room in good stable condition. OPERATIVE INDICATIONS The patient has had long-standing issues in their lower back and lower extremities. She's been through significant treatment for her lumbar spine including multiple surgeries in the past. She had been doing well since her last surgery but has been developing worsening pain and claudication and radiculopathy at her proximal legs and thighs. She is having worsening symptoms and he didn't demonstrate some weakness proximally. She was found have evidence of severe adjacent level degeneration and stenosis at L2-3. Her prior fusions from L3 to S1 appear to be stable. She went through a number of different conservative treatments however she does not have any lasting benefit despite aggressive conservative care. The patient has been through conservative treatment. We discussed the possibility of further surgery with her in terms of decompression with extension of her fusion at the adjacent level at L2-3 above her prior fusion. We discussed various treatment options including surgery, and the patient wishes to proceed with surgery We discussed the risk, patient's alternatives and benefits of surgery including but not limited to, risk of bleeding risk of infection, risk of need for further surgery, risk of decreased, loss of motion, muscle function, malunion nonunion, hardware failure, nerve damage, paralysis, heart attack, blindness and . OPERATIVE SUMMARY After discussing all the risks, patient alternatives and benefits at length, the patient elected to proceed with surgical intervention, signed informed consent, and presented for their procedure. The patient was seen and examined in the preoperative holding area and the surgical site was marked. The patient was given antibiotics and brought to the operating room. The patient was sedated and intubated by anesthesia in standard fashion. The patient was positioned on to the operating room table in a prone position on the appropriate frame which was well-padded and well molded. We were careful to pad any bony prominences and pressure points. We were careful to maintain the patient's cervical spine and good neutral alignment and position throughout. The patient was prepped and draped in a normal standard fashion. An appropriate timeout and keystone protocol performed. We were able to proceed with the surgery. The local wound area was infiltrated with local anesthetic. An incision was made at the midline longitudinally over the appropriate levels from L2 to L4. Dissection was taken down subcutaneously to the level of the fascia which was split midline. Dissection was taken over the lamina bilate rally over the facet joints and to the transverse processes. Intraoperative x- ray was taken which showed a marker at the appropriate level as a found the prior hardware at L3 and L4 bilaterally. With the appropriate level positively confirmed, we were able to proceed with placement of the pedicle holes and screws. The patient had all their twitches back. The wound was copiously irrigated and suctioned dry as had been done periodically throughout the case. At this point we were able find the screws at L3 and L4 and expose the spinous processes at L2 and L3. I was able to attach a guidance for the CT navigation at the spinous process with good fixation. With the guidance barrel and receiver aligner attached we were able to draped appropriately and do a CT-guided spin intraoperatively with the [employer] navigation system. Once we had appropriate span and excellent guidance we were then able to place screws 2 at L2 bilaterally using CT guidance and direct visualization. Screw holes were established similarly at the L2 level leaving the L3 through 5 screws intact. I was able to place the Jamshidi needle appropriate leg with CT guidance and then place a wire intraoperatively. The position was checked with image guidance and then we were able to place screws at L2 and good alignment good position with excellent bony purchase.. When the screws were inserted there were stimulated, and found to h ave no stimulation at 20 mA. I checked the hardware at L3 and L4 and it was found to be stable without any evidence of loosening. There is no evidence of any motion along with fusion. I was able to turn my attention to the decompression. decompression was performed with a combination of rongeurs, curettes, [place] rongeurs and a ball-tip feeler. There was severe central and bilateral foraminal stenosis at L2-3 and I was able to get excellent decompression centrally and at the bilateral neural foramen with decompression. All of the bone that was removed was stripped and morcellized for use as autogenous bone graft later in the case. I was able to obtain good central decompression as well as wide bilateral foraminal decompression. There is no evidence of dural tear or leak. Good hemo stasis was maintained. The wound was irrigated and suctioned dry. I was able to expose the leyla between L3 4 and I felt we had good space between between the screws along the leyla in order to use and [place] leyla extension system. I was able to then expose the leyla and establish the appropriate size and length for the leyla extension system. He was chosen positioned measured and placed with a locking device and locking screws from L2 to the leyla between L3 and L4 bilaterally. It was checked and found excellent stability. The screws were all torqued appropriately and checked and found to have excellent stability. With the hardware intact, intraoperative x-ray was again taken which showed good alignment and position of the hardware at the appropriate levels. Final imaging was completed which showed good alignment and position of all hardware from L2 to S1. With this intact I was able to place the local autogenous bone graft with additional bone graft enhancer as necessary into the posterior lateral gutters bilaterally. With the bone graft intact, a stable construct, and good decompression at the appropriate levels, we were able to proceed with closure. Good hemostasis was maintained. There is no evidence of dural tear or leak. The fascia was closed for a watertight closure. The subcutaneous tissue was closed over a superficial drain. The subcuticular tissue was closed with absorbable suture. The wound was cleaned and dried and dressed with the appropriate dressing. The drapes were broken down. The patient was gently rolled back onto their hospital bed being careful to maintain their cervical spine and good neutral alignment and position. They were woken up by anesthesia, extubated, and brought to the recovery room in good stable condition. The patient will be admitted to the hospital for appropriate postoperative care, medical management and monitoring. We will continue to follow them closely about the postoperative course.
--- NOTE | 2023-01-16 18:17 | XR ---
EXAMINATION TYPE: XR lumbar spine 2 or 3V, FL guidance operating room DATE OF EXAM: 01/16/2023 Comparison: None Clinical History: 62-year-old female PLDF SPINAL STENOSIS L2-3 Findings: PLDF for spinal stenosis of L2/3. FL time 17 seconds. DAP 1236.[address] Corona. 6 images scanned i n to PACS Impression: Fluoroscopy as above
[2023-01-16] MEDS: SODIUM CHLORIDE 0.9% 1,000 ML IV SCH (19:03)
[2023-01-16] MEDS: HYDROcodone/APAP 5-325MG 1 EACH TAB PO PRN (21:10)
[2023-01-16] MEDS: GABAPENTIN 100 MG CAP PO SCH (21:10)
[2023-01-16] MEDS ORDERED: ONDANSETRON 4 MG/2 ML VIAL IVP STA (21:18)
[2023-01-17] MEDS: HYDROmorphone 1 MG/ML 1 ML SYRINGE IVP PRN ×5 (00:46→16:17)
[2023-01-17] MEDS: ONDANSETRON 4 MG/2 ML VIAL IVP PRN ×3 (00:46→15:18)
[2023-01-17] MEDS: LEVOTHYROXINE 50 MCG TAB PO SCH (05:24)
[2023-01-17] MEDS: LACTATED RINGERS 1,000 ML IV SCH (07:30)
[2023-01-17] MEDS: SENNOSIDES-DOCUSATE SODIUM 1 EACH TAB PO SCH (08:14)
[2023-01-17] MEDS: PANTOPRAZOLE 40 MG TABLET PO SCH (08:14)
[2023-01-17] MEDS: buPROPion XL 300 MG TAB.ER.24H PO SCH (08:14)
[2023-01-17] MEDS: SODIUM CHLORIDE 0.9% 1,000 ML IV SCH ×2 (08:17→18:00)
[2023-01-17] MEDS: CYCLOBENZAPRINE 10 MG TAB PO PRN ×2 (08:22→15:17)
[2023-01-17 08:26] LABS: Basophils # (A) 0.03 X 10*3/uL (0.00-0.10); Basophils % (A) 0.5 %; Eosinophils # (A) 0.06 X 10*3/uL (0.04-0.35); HCT 28.4 % (37.2-46.3); Lymphocytes # (A) 0.99 X 10*3/uL (0.90-5.00); Lymphocytes % (A) 16.2 %; MCH 29.5 pg (27.0-32.0); MCHC 31.7 g/dL (32.0-37.0); MCV 93.1 FL (80.0-97.0); Mean Platelet Volume 9.3 FL (9.5-12.2); Monocytes # (A) 0.57 X 10*3/uL (0.20-1.00); Monocytes % (A) 9.3 %; NRBC Per 100 WBC 0 X 10*3/uL (0.00-0.01); Neutrophils # (A) 4.45 X 10*3/uL (1.80-7.70); Neutrophils % (A) 72.7 %; Platelet Count 218 X 10*3/uL (140-440); RBC 3.05 X 10*6/uL (4.10-5.20); RDW 12.3 % (11.5-14.5); WBC 6.12 X 10*3/uL (4.50-10.00)
[2023-01-17 08:55] LABS: BUN/Creat Ratio 26.67 Ratio (12.00-20.00); Glucose 117 mg/dL (70-110)
[2023-01-17 08:56] LABS: Calcium 8.4 mg/dL (8.7-10.3); Carbon Dioxide 26.7 mmol/L (21.6-31.8); Chloride 105 mmol/L (96-109); Potassium 4.1 mmol/L (3.5-5.5); Sodium 138 mmol/L (135-145)
[2023-01-17] MEDS: DULoxetine HCL 20 MG CAPSULE.DR PO SCH (09:40)
[2023-01-17] MEDS: HYDROcodone/APAP 5-325MG 1 EACH TAB PO PRN ×3 (10:33→20:04)
--- NOTE | 2023-01-17 10:58 | P.PN ---
Progress Note - Text Progress Note Date: 01/17/23 Postoperative day #1 Patient is seen and examined today at bedside. The patient has some pain around the surgical site as expected. Pain is being controlled with medication. She is up in a chair. She is moving her legs well. She had some nausea overnight but feels it is resolving. She has been able have some crackers and minda fernando Physical Exam Afebrile with stable vital signs Abdomen is soft nontender. Chest has good excursion deep and space expiration The incision site is clean dry and intact. No erythema there is no purulence. Her drain is intact at her back Extremities have not had neurologic change from prior to surgery. She has sustained dorsal flexion plantar flexion and EHL intact. Calves and thighs were soft nontender without evidence of DVT. Assessment/Plan Postoperative day #1 status post open decompression fusion L2-3 for adjacent level degeneration with severe stenosis at that level with lower extremity radiculopathy Connection fusion at L2-3 to her prior fusion L3 to S1 Patient is progressing as expected from the surgery. Hopefully she'll be able t o tolerate advancing diet further without significant nausea. She is moving fairly well and had her [place] discontinued We will continue to increase the patient's mobilization with therapy. We will continue pain control with oral or IV medications. We'll continue to follow patient closely.
[2023-01-17] MEDS: diazePAM 5 MG TAB PO PRN (18:00)
[2023-01-17] MEDS: GABAPENTIN 100 MG CAP PO SCH (20:04)
[2023-01-18] MEDS: HYDROcodone/APAP 5-325MG 1 EACH TAB PO PRN ×3 (01:41→21:44)
[2023-01-18] MEDS: HYDROmorphone 1 MG/ML 1 ML SYRINGE IVP PRN ×6 (04:52→22:41)
[2023-01-18] MEDS: LEVOTHYROXINE 50 MCG TAB PO SCH (04:56)
[2023-01-18] MEDS: LACTATED RINGERS 1,000 ML IV SCH (07:47)
--- NOTE | 2023-01-18 09:04 | P.PN ---
Progress Note - Text Progress Note Date: 01/18/23 Orthopedic Spine History of present illness: Patient is a pleasant 62-year-old female who is seen and examined at the bedside following posterior lateral decompression and fusion performed Saturday. Patient states they are doing okay post operatively. Her leg pains have significantly improved postoperatively. She has been able to ambulate to the restroom this is not a walker. Currently does not complain of nausea, vomiting, fever, or chills. Patient states pain has been adequately controlled. Patient is eating and voiding freely without difficulty. Patient does have a walker at home. She does feel she is progressing but not ready for discharge. She does continue to require IV pain medication. She is hoping to be discharged home over the next couple days. Her other medical history includes hypothyroidism and a history of anemia. Physical Exam Lumbar Fusion: Status post surgical day number 2 Patient is awake, alert, and oriented 3 Vital signs stable Good chest excursion with deep inspiration and expiration Hemovac drain is removed during physical examination; dressing reapplied with had an operative foam Dorsiflexion, plantarflexion, and extensor hallucis longus positive sustained bilaterally No signs or symptoms of DVT; no calf pain; pneumatic cuffs intact bilateral lower extremities Optifoam dressing is clean, dry, and intact over the lumbar spine; no erythema, purulence, or signs of infection Neurovascularly intact bilaterally lower extremities Some pain with palpation along the midline over the surgical site the lumbar spine Assessment: Status post L2-3 open posterior lateral decompression and fusion with extension to retained hardware at L3-S1 Low back pain L2-3 severe spinal stenosis Lower extremity radiculopathy Neurogenic claudication L2-3 adjacent level degenerative disc disease History of previous lumbar fusions with retained hardware L3-S1 Hypothyroidism History of anemia Plan: 1. We will continue to follow the patient closely; patient continues to have difficulty with mobilization and ambulation postoperatively. She has been working with physical therapy and is progressing. She has been utilizing a walker. She continues to require IV and oral medications for pain control. I do not feel the patient is ready for discharge home. Patient will continue to remain in the hospital until her symptoms improve and her pain is better controlled. We will plan to have the patient be admitted to in patient status during her admission. Depending on her progress we patient may plan to be discharged home tomorrow, 01/19/2023, or 01/20/2023. 2. Ambulate as tolerated; work with Physical Therapy to increase mobilization 3. Continue pain control with IV and oral medications; will plan to begin weaning the patient off of IV narcotic medication in anticipation for discharge home in the next 1-2 days MAPS has been reviewed today, 01/18/2023, with an Overall Overdose Risk Score of 270. An "Opiod Start Talking" Form has been signed and placed in the patient's chart. A prescription has been written for IJ: 5 mg/325 mg, 1 tab, every 4 hours, as needed for acute pain, dispense #42. She is also given prescriptions for cyclobenzaprine 10 mg, 1 tab, 3 times a day, as needed for muscle spasm, dispensed #60 and Senokot-S, 1, twice a day, as needed for constipation, dispensed #60. Medications are sent to the patient's regular pharmacy per request of the patient. Following discharge, patient may resume her other previously prescribed home medications while avoiding anti-inflammatory medications over the next 6 weeks postoperatively. 4. Dressings to remain intact with Optifoam; patient may shower with dressings intact 5. Patient can follow-up with Lyndon Smith PA-C or Dr. Juan Corona at [facility] in 2-3 weeks following discharge
[2023-01-18] MEDS: PANTOPRAZOLE 40 MG TABLET PO SCH (09:22)
[2023-01-18] MEDS: DULoxetine HCL 20 MG CAPSULE.DR PO SCH (09:22)
[2023-01-18] MEDS: SENNOSIDES-DOCUSATE SODIUM 1 EACH TAB PO SCH (09:22)
[2023-01-18] MEDS: buPROPion XL 300 MG TAB.ER.24H PO SCH (09:22)
[2023-01-18] MEDS: SODIUM CHLORIDE 0.9% 1,000 ML IV SCH ×2 (10:47→23:21)
[2023-01-18] MEDS: CYCLOBENZAPRINE 10 MG TAB PO PRN ×2 (13:21→19:37)
[2023-01-18] MEDS: diazePAM 5 MG TAB PO PRN ×2 (15:34→21:45)
[2023-01-18] MEDS: GABAPENTIN 100 MG CAP PO SCH (19:37)
[2023-01-19] MEDS: HYDROmorphone 1 MG/ML 1 ML SYRINGE IVP PRN ×4 (03:24→20:09)
[2023-01-19] MEDS: HYDROcodone/APAP 5-325MG 1 EACH TAB PO PRN ×2 (05:58→11:02)
[2023-01-19] MEDS: CYCLOBENZAPRINE 10 MG TAB PO PRN ×3 (05:59→20:09)
[2023-01-19] MEDS: LEVOTHYROXINE 50 MCG TAB PO SCH (05:59)
[2023-01-19] MEDS: LACTATED RINGERS 1,000 ML IV SCH (07:21)
[2023-01-19] MEDS: DULoxetine HCL 20 MG CAPSULE.DR PO SCH (07:21)
[2023-01-19] MEDS: PANTOPRAZOLE 40 MG TABLET PO SCH (07:21)
[2023-01-19] MEDS: buPROPion XL 300 MG TAB.ER.24H PO SCH (07:21)
[2023-01-19] MEDS: SENNOSIDES-DOCUSATE SODIUM 1 EACH TAB PO SCH (07:21)
[2023-01-19] MEDS: ONDANSETRON 4 MG/2 ML VIAL IVP PRN (10:56)
[2023-01-19] MEDS: MAGNESIUM HYDROXIDE 2,400 MG/30 ML CUP PO PRN (10:56)
[2023-01-19] MEDS: SODIUM CHLORIDE 0.9% 1,000 ML IV SCH ×2 (12:29→23:26)
--- NOTE | 2023-01-19 13:02 | P.PN ---
Subjective Progress Note Date: 01/19/23 Principal diagnosis: S/P L2-3 decompression Postoperative day #3 Patient is seen and examined today at bedside. The patient has some pain around the surgical site as expected. Pain is being controlled with medication. She is much more mobile now. She is still somewhat nauseous but tolerating very small amount of diet. She still requiring some IV pain medication Physical Exam Afebrile with stable vital signs Abdomen is soft nontender. Chest has good excursion deep and space expiration The incision site is clean dry and intact. No erythema there is no purulence. Extremities have not had neurologic change from prior to surgery. Calves and thighs were soft nontender without evidence of DVT. Assessment/Plan Postoperative day #3 status post open decompression fusion L2-3 with extension of her prior fusion from L3 to S1 for severe spinal stenosis with lower extrem ity radiculopathy and claudication Patient is progressing as expected from the surgery. We will try to start to wean her IVs further. She is not yet had a bowel movement but hopefully she will be able to increase her mobilization and have a bowel movement today. She says she is passing gas. She feels that she'll be able to be discharged home tomorrow and I think that is likely. We will continue to increase the patient's mobilization with therapy. We will continue pain control with oral or IV medications. We'll continue to follow patient closely. Patient is seen at bedside this morning. She is postop day #3 from L2-3 decompression. She has pain at the surgical site as expected but denies any new complaints. He denies numbness, tingling or calf pain. Review of systems is negative for fever, chills, chest pain, shortness of breath or other Objective - Vital Signs Vital signs: Vital Signs Temp 97.8 F 01/19/23 08:36 Pulse 93 01/19/23 08:36 Resp 20 01/19/23 08:36 BP 122/77 01/19/23 08:36 Pulse Ox 96 01/19/23 08:36 FiO2 Intake & Output 01/18/23 01/19/23 01/19/23 18:59 06:59 18:59 Intake Total 100 Output Total 600 Balance -500 Intake: Oral 100 Output: Urine 600 Other: Voiding Method Toilet Toilet # Voids 2 3 - Exam Inspection reveals a benign surgical wound. There is no active bleeding or drainage. Neurovascular status is intact throughout the lower extremities with motor and sensation fully intact L2-S1. Calves are soft and nontender. 2+ dorsalis pedis pulse and less than 2 second cap refill is present. - Constitutional General appearance: Present: no acute distress - Labs CBC & Chem 7: 01/17/23 05:58 01/17/23 05:58 Assessment and Plan (1) Spinal stenosis Narrative/Plan: She will continue with routine postop orthopedic protocol including pain management, wound care, PT, DVT prophylaxis and medical management. We will adjust her oral pain meds today to try to achieve better pain control. Expect that she will transfer to home tomorrow Current Visit: Yes Status: Acute Code(s): M48.00 - SPINAL STENOSIS, SITE UNSPECIFIED SNOMED Code(s): 03161980 Time with Patient: Less than 30
[2023-01-19] MEDS: HYDROcodone/APAP 7.5-325MG 1 EACH TAB PO PRN ×2 (14:00→18:11)
[2023-01-19] MEDS: HYDROmorphone 0.5 MG/0.5 ML SYRINGE IVP PRN (17:10)
[2023-01-19] MEDS: GABAPENTIN 100 MG CAP PO SCH (20:09)
[2023-01-20] MEDS: HYDROmorphone 0.5 MG/0.5 ML SYRINGE IVP PRN ×2 (00:57→05:50)
[2023-01-20] MEDS: HYDROcodone/APAP 5-325MG 1 EACH TAB PO PRN ×2 (03:30→19:56)
[2023-01-20] MEDS: LEVOTHYROXINE 50 MCG TAB PO SCH (05:50)
[2023-01-20] MEDS: MAGNESIUM HYDROXIDE 2,400 MG/30 ML CUP PO PRN (06:16)
[2023-01-20] MEDS: buPROPion XL 300 MG TAB.ER.24H PO SCH (08:16)
[2023-01-20] MEDS: PANTOPRAZOLE 40 MG TABLET PO SCH (08:16)
[2023-01-20] MEDS: HYDROcodone/APAP 7.5-325MG 1 EACH TAB PO PRN ×2 (08:16→16:46)
[2023-01-20] MEDS: SENNOSIDES-DOCUSATE SODIUM 1 EACH TAB PO SCH (08:16)
[2023-01-20] MEDS: DULoxetine HCL 20 MG CAPSULE.DR PO SCH (08:16)
[2023-01-20] MEDS: LACTATED RINGERS 1,000 ML IV SCH (09:29)
[2023-01-20] MEDS ORDERED: bisacodyL 10 MG SUPP RECTAL PRN (10:21)
--- NOTE | 2023-01-20 10:21 | P.PN ---
Progress Note - Text Progress Note Date: 01/20/23 Postoperative day #4 Patient is seen and examined today at bedside. The patient has some increased pain around the surgical site today with some spasm. Pain is being controlled with medication, but she still having some difficulty getting around and managing the pain. She has not yet had a bowel movement. She does not feel she is passing gas gas. Physical Exam Afebrile with stable vital signs She is mobile in her bed but is sore with motion Abdomen is soft nontender. Her abdomen does not have any tenderness or rebound. Chest has good excursion deep and space expiration The incision site is clean dry and intact. No erythema there is no purulence. Extremities have not had neurologic change from prior to surgery. Calves and thighs were soft nontender without evidence of DVT. Assessment/Plan Postoperative day #4 status post decompression fusion L2-3 with extension her prior fusion from L3 to S1 Patient is progressing a bit slowly from the surgery. She was doing better yesterday and is having some difficulty controlling her pain. We will of the pain medications slightly today with orals. She is not a bowel movement but her abdomen is soft. She has taken some stool softeners by may need a suppository We will continue to increase the patient's mobilization with therapy. I would like to see her GI system move better before she is discharged home. She does not feel comfortable this morning and may need to stay overnight another night before going home potentially tomorrow We will continue pain control with oral or IV medications. We'll continue to follow patient closely.
[2023-01-20] MEDS: SODIUM CHLORIDE 0.9% 1,000 ML IV SCH (16:29)
[2023-01-20] MEDS: GABAPENTIN 100 MG CAP PO SCH (19:56)
[2023-01-20] MEDS: CYCLOBENZAPRINE 10 MG TAB PO PRN (19:56)
[2023-01-21] MEDS: HYDROcodone/APAP 5-325MG 1 EACH TAB PO PRN ×2 (01:35→05:26)
[2023-01-21 02:23] VITALS: TEMP 97.9
[2023-01-21] MEDS: SODIUM CHLORIDE 0.9% 1,000 ML IV SCH (03:54)
[2023-01-21] MEDS: LEVOTHYROXINE 50 MCG TAB PO SCH (05:26)
[2023-01-21] MEDS: CYCLOBENZAPRINE 10 MG TAB PO PRN (08:07)
[2023-01-21 08:25] VITALS: BP 125/82; PULSE 79; RESP 18
[2023-01-21] MEDS: DULoxetine HCL 20 MG CAPSULE.DR PO SCH (09:00)
[2023-01-21] MEDS: PANTOPRAZOLE 40 MG TABLET PO SCH (09:01)
[2023-01-21] MEDS: SENNOSIDES-DOCUSATE SODIUM 1 EACH TAB PO SCH (09:01)
[2023-01-21] MEDS: buPROPion XL 300 MG TAB.ER.24H PO SCH (09:01)
[2023-01-21] MEDS: HYDROcodone/APAP 7.5-325MG 1 EACH TAB PO PRN (09:03)
--- NOTE | 2023-01-21 10:01 | P.DS ---
Providers Date of admission: 01/18/23 07:39 Expected date of discharge: 01/21/23 Attending physician: Jersey Corona Primary care physician: Ann Ash - Discharge Diagnosis(es) (1) Anemia Current Visit: Yes Status: Acute (2) Spinal stenosis Current Visit: Yes Status: Acute (3) History of lumbar fusion Current Visit: No Status: Acute (4) Low back pain Current Visit: No Status: Acute (5) Lumbar degenerative disc disease Current Visit: No Status: Acute (6) Lumbar facet arthropathy Current Visit: No Status: Acute (7) Lumbar stenosis with neurogenic claudication Current Visit: No Status: Acute (8) Radiculopathy with lower extremity symptoms Current Visit: No Status: Acute (9) S/P lumbar fusion Current Visit: No Status: Acute (10) Hypothyroidism Current Visit: Yes Status: Acute Hospital Course: This is a pleasant 62-year-old female who presented with low back pain, lower extremity radiculopathy, neurogenic claudication, L2-3 adjacent level degenerative disc disease and severe spinal stenosis with history of previous multiple lumbosacral fusions with retained hardware at L3-S1 who failed outpatient conservative therapy. She was admitted for an L2-3 open posterior lateral decompression and fusion with extension to retained hardware at L3-S1. She has progressed somewhat slowly in terms of pain control postoperatively. She has been able to increase her mobility and ambulation. She has been able to ambulate to the restroom. Her pain is most significant at her lumbar spine. She states her lower extremity pain has been actively control. She is not currently complaining of any lower extremity pain. She does feel she could control her pain with oral medications and is ready for discharge home today. Condition on day of discharge stable. Patient will be discharged home. Patient was cleared preoperatively for surgery by Dr. Ash. Patient currently denies any nausea, vomiting, fever, or chills. Patient is eating and voiding freely without difficulty. Patient may shower without a Optifoam dressing intact. Patient may remove Optifoam dressing in 3 days and shower without a dressing at that time. Patient should refrain from driving until at least after their first follow-up appointment in the office.P Atient should avoid excessive bending, lifting, and twisting; no lifting greater than 10 pounds. Patient is encouraged to utilize a walker to aid in ambulation as needed. Patient has a walker at home. MAPS has been reviewed on 01/18/2023 with an Overall Overdose Risk Score of 270. An "Opiod Start Talking" Form has been signed and placed in the patient's chart. A prescription has been written hydrocodone 325 mg/325 mg, 1 tab, every 4 hours, as needed for acute pain, dispense #42. She is also given prescriptions for cyclobenzaprine 10 mg, 1 tab, 3 times a day, as needed for muscle spasm, dispensed #60 and Senokot-S, 1, twice a day, as needed for constipation, dispensed #60. Medications are sent to the patient's regular pharmacy per request of the patient. Following discharge, patient may resume her other previously prescribed home medications while avoiding anti-inflammatory medications over the next 6 weeks postoperatively. Patient's other medical diagnoses include hypothyroidism with history of anemia. Physical Exam on day of discharge: Status post surgical day number 5 Patient is awake, alert, and oriented 3 Vital signs stable Good chest excursion with deep inspiration and expiration Dorsiflexion, plantarflexion, and extensor hallucis longus positive sustained bilaterally No signs or symptoms of DVT; no calf pain; pneumatic cuffs intact bilateral lower extremities Optifoam dressing is removed; surgical site remains clean, dry, and intact over the lumbar spine; no erythema, purulence, or signs of infection Neurovascularly intact bilaterally lower extremities Some pain with palpation along the midline over the surgical site the lumbar spine Some bruising around the surgical site the lumbar spine Procedures: L2-3 open posterior lateral decompression and fusion with extension to retained hardware at L3-S1 Patient Condition at Discharge: Stable Plan - Discharge Summary Discharge Rx Participant: Yes New Discharge Prescriptions: New HYDROcodone/APAP 7.5-325MG [[place] 7.5-325] 1 tab PO Q4H PRN 7 Days #42 tab PRN Reason: Pain Cyclobenzaprine [Flexeril] 10 mg PO TID PRN #60 tab PRN Reason: Muscle Spasm Sennosides-Docusate Sodium [Senokot-S] 1 tab PO BID PRN #60 tablet PRN Reason: Constipation No Action Meloxicam [Mobic] 15 mg PO DAILY Levothyroxine Sodium [Synthroid] 50 mcg PO QAM buPROPion HCL [Wellbutrin XL] 300 mg PO QAM Cyclobenzaprine [Flexeril] 10 mg PO TID PRN #60 tab PRN Reason: Spasms Gabapentin [Neurontin] 100 mg PO HS Omeprazole [PriLOSEC] 40 mg PO QAM HYDROcodone/APAP 5-325MG [[place] 5-325] 1 tab PO Q8HR PRN PRN Reason: Pain DULoxetine HCL [Cymbalta] 20 mg PO DAILY Discharge Medication List Levothyroxine Sodium [Synthroid] 50 mcg PO QAM 05/07/18 [History] Meloxicam [Mobic] 15 mg PO DAILY 05/07/18 [History] buPROPion HCL [Wellbutrin XL] 300 mg PO QAM 05/07/18 [History] Cyclobenzaprine [Flexeril] 10 mg PO TID PRN #60 tab 08/13/20 [Rx] Omeprazole [PriLOSEC] 40 mg PO QAM 05/09/21 [History] DULoxetine HCL [Cymbalta] 20 mg PO DAILY 01/10/23 [History] Gabapentin [Neurontin] 100 mg PO HS 01/10/23 [History] HYDROcodone/APAP 5-325MG [[place] 5-325] 1 tab PO Q8HR PRN 01/10/23 [History] Cyclobenzaprine [Flexeril] 10 mg PO TID PRN #60 tab 01/18/23 [Rx] Sennosides-Docusate Sodium [Senokot-S] 1 tab PO BID PRN #60 tablet 01/18/23 [Rx] HYDROcodone/APAP 7.5-325MG [[place] 7.5-325] 1 tab PO Q4H PRN 7 Days #42 tab 01/20/23 [Rx] Follow up Appointment(s)/Referral(s): Lyndon Smith, MARK [PHYSICIAN FREELANCE MAKEUP ARTIST] - 02/01/23 11:00 am (Patient may follow-up with Lyndon Smith PA-C or Dr. Juan Corona at [facility] in 2-3 weeks following discharge. ) Activity/Diet/Wound Care/Special Instructions: 1. Patient may shower without a Optifoam dressing intact. 2. Patient should refrain from driving until at least after their first follow- up appointment in the office. 3. Patient should avoid excessive bending, twisting, lifting; avoid overhead lifting; no lifting greater than 10 pounds 4. Take medications as prescribed 5. Patient is encouraged to utilize walker to aid in ambulation as needed 6. Patient should avoid anti-inflammatory medications over the next 6 weeks postoperatively 7. Do not soak in tub Discharge Disposition: HOME SELF-CARE
--- NOTE | 2023-01-22 14:21 | CDI ---
Documentation Clarification Form Date: 01/22/2023 02:08:29 PM From: Zuleika Vargas Phone: Admit Date: 01/18/2023 07:39:00 AM Patient Name: Taylor Mueller Visit Number: [id number] Discharge Date: 01/21/2023 11:45:00 AM ATTENTION: The Clinical Documentation Specialists (CDI) and [facility] Coding Staff appreciate your assistance in clarifying documentation. Please respond to the clarification below the line at the bottom and electronically sign. The CDI & [facility] Coding staff will review the response and follow-up if needed. Please note: Queries are made part of the Legal Health Record. If you have any questions, please contact the author of this message via ITS. Dr. Jersey Corona Unspecified anemia is documented per Progress Note 01/18. Additional specificity regarding the type & acuity of anemia is requested. History/Risk Factors: 62yo F, severe spinal stenosis L2-3 with radiculopathy and neurogenic claudication, LDDD, Hx arthrodesis, facet arthropathy lumbar Clinical indicators: Hemoglobin: 9.0 Hematocrit: 28.4 Treatment: Cell save intraoperative Please clarify the type and acuity of anemia: [ x ] Acute blood loss anemia [ ] Acute on chronic blood loss anemia [ ] Unable to determine [ ] Other, please specify (Template Last Revised: April 2020) MTDD
== END 2023-01-21 11:45 | disposition home or self-care (01) | DRG 454 ==
LOC: OR 11:17 → 4SSUR 16:58 → OR 01-18 07:39
PROVIDERS: ADMIT Orthopaedic Surgery Orthopaedic Surgery of the Spine; ATTEND Orthopaedic Surgery Orthopaedic Surgery of the Spine
PROC: 0SG1071 Fusion of 2 or more Lumbar Vertebral Joints with Autologous Tissue Substitute, Posterior Approach, Posterior Column, Open Approach (ICD-10-PCS; 2023-01-16)
PROC: 0SG30AJ Fusion of Lumbosacral Joint with Interbody Fusion Device, Posterior Approach, Anterior Column, Open Approach (ICD-10-PCS; 2023-01-16)
PROC: 0SG3071 Fusion of Lumbosacral Joint with Autologous Tissue Substitute, Posterior Approach, Posterior Column, Open Approach (ICD-10-PCS; 2023-01-16)
PROC: 01NB0ZZ Release Lumbar Nerve, Open Approach (ICD-10-PCS; 2023-01-16)
PROC: 30233H0 Transfusion of Autologous Whole Blood into Peripheral Vein, Percutaneous Approach (ICD-10-PCS; 2023-01-16)
PROC: 8E0WXBZ Computer Assisted Procedure of Trunk Region (ICD-10-PCS; 2023-01-16)
PROC: 0SG10AJ Fusion of 2 or more Lumbar Vertebral Joints with Interbody Fusion Device, Posterior Approach, Anterior Column, Open Approach (ICD-10-PCS; principal; 2023-01-16 13:15)
DX: M48.062 Spinal stenosis, lumbar region with neurogenic claudication (principal); D62 Acute posthemorrhagic anemia; M46.1 Sacroiliitis, not elsewhere classified; E03.9 Hypothyroidism, unspecified; M51.36 Other intervertebral disc degeneration, lumbar region; M51.16 Intervertebral disc disorders with radiculopathy, lumbar region; H91.90 Unspecified hearing loss, unspecified ear; M96.1 Postlaminectomy syndrome, not elsewhere classified; M43.16 Spondylolisthesis, lumbar region; M47.26 Other spondylosis with radiculopathy, lumbar region; Z98.1 Arthrodesis status; Z79.890 Hormone replacement therapy; Z79.891 Long term (current) use of opiate analgesic; Z79.899 Other long term (current) drug therapy; Z87.891 Personal history of nicotine dependence
CPT/HCPCS: 72100; 80048; 85025; 94760

== ENCOUNTER → 2023-06-19 | Outpatient (CLI) | payer MEDICARE ==
--- NOTE | 2023-06-21 13:58 | MR ---
EXAMINATION TYPE: MR shoulder RT wo con DATE OF EXAM: 06/19/2023 COMPARISON: None HISTORY: Right shoulder pain into right side of neck x3-4 months, Raising arm is painful TECHNIQUE: Multiplanar, multisequence imaging of the right shoulder is performed without contrast. FINDINGS: Suboptimal study due to motion artifact. Rotator Cuff: Some increased signal in the supraspinatus and to lesser degree infraspinatus tendons w ith adjacent fluid. Rotator cuff muscle bulk is preserved. Acromioclavicular Joint: Moderate narrowing at the acromioclavicular joint with moderate to severe ca psular hypertrophy. Loss of the underlying fat plane. Glenohumeral Joint: Small to moderate-sized joint effusion. No significant spurring. Labrum: Increased signal superior labrum consistent with tear. Biceps Tendon: The long head of biceps is in normal location within bicipital groove. Bone marrow signal: No focal abnormal marrow signal is appreciated. Other: No additional significant abnormality is appreciated. IMPRESSION: 1. Superior labral tear. 2. Moderate AC joint arthropathy with suggestion of underlying impingement. Correlate clinically. 3. Moderate-sized glenohumeral joint effusion. 4. Some tendinosis of the infraspinatus and supraspinatus tendons.
== END | disposition home or self-care (01) ==
LOC: RADMRIMAIN 21:30
PROVIDERS: ATTEND Family Medicine
DX: M25.811 Other specified joint disorders, right shoulder (principal); M19.011 Primary osteoarthritis, right shoulder; M67.813 Other specified disorders of tendon, right shoulder

== ENCOUNTER → 2023-07-25 | Day surgery (SDC) | payer MEDICARE ==
[2023-07-24 09:42] VITALS: BMI 21.6
[~2023-07-25] MED LIST changes: -DEXAMETHASONE SOD PHOSPHATE 4 MG/ML 1 ML VIAL IV ONE; -HYDROmorphone 0.5 MG/0.5 ML SYRINGE IVP PRN; +LIDOCAINE 1% INJ 10MG/ML (20 ML MDV) ONE; -ONDANSETRON 4 MG/2 ML VIAL IVP ONE; +PROPOFOL 10 MG/ML 20 ML VIAL IV ONE; -ceFAZolin 1,000 MG in SODIUM CHLORIDE 0.9% IRRIGATIO 1,000 ML IRRIGATION PRN
[2023-07-25] MEDS: LACTATED RINGERS 1,000 ML IV SCH (08:47)
[2023-07-25 09:15] VITALS: RESP 16; TEMP 97.5
--- NOTE | 2023-07-25 09:32 | P.OP ---
Date of Procedure: 07/25/23 Preoperative Diagnosis: GERD Diverticulitis Postoperative Diagnosis: antral gastritis Mild diverticulosis Procedure(s) Performed: EGD Colonoscopy Anesthesia: MAC Surgeon: Eric Brown Pathology: other (antrum, esophagus) Condition: stable Disposition: PACU Description of Procedure: the patient's placed on the endoscopy table lateral position. She received IV sedation. The gastro-/oropharynx passed in the esophagus and stomach. Scope placement pylorus. The first second portion of duodenum appeared normal. Scope was brought back to the stomach. Patient appears gastric sleeve. The antrum was biopsied. This appeared minimally inflamed. Scope withdrawn through the sleeve. There is no evidence of any obstruction of sleeve. The GE junction was at 40 cm per the distal esophagus appeared mildly inflamed. A biopsies performed. The proximal esophagus appeared normal. Scope withdrawn for patient. Next digital rectal exam was performed. This was normal. The flexible colonoscope was then placed patient anus and passed rotator entire colon. Ileocecal valve was visualized. This appeared normal. The right colon appeared normal. The transverse colon appeared normal. In the descending; a few scattered diverticuli. Scope was brought back the rectum and this appeared normal. Scope withdrawn for patient.
[2023-07-25 10:13] VITALS: BP 141/89; PULSE 76
== END | disposition home or self-care (01) ==
LOC: ORWHC2ENDO 08:07
PROVIDERS: ATTEND Surgery
DX: K29.50 Unspecified chronic gastritis without bleeding (principal); K21.00 Gastro-esophageal reflux disease with esophagitis, without bleeding; K57.30 Diverticulosis of large intestine without perforation or abscess without bleeding; E07.9 Disorder of thyroid, unspecified; Z79.890 Hormone replacement therapy; Z79.899 Other long term (current) drug therapy; Z90.710 Acquired absence of both cervix and uterus
CPT/HCPCS: 88305; 45378; 43239; J2001; J2704

== ENCOUNTER → 2023-12-24 | Outpatient (CLI) | payer MEDICARE ==
--- NOTE | 2023-12-25 11:10 | MM ---
Reason for Exam: Screening (asymptomatic). Last screening mammogram was performed 12 month(s) ago. Patient History: Menarche at age 10. First Full-Term at age 16. Left ovary removed at age 41. Right ovary removed at age 41. Hysterectomy at age 41. Postmenopausal. Currently using Estrogen, starting at age 41. Risk Values: Kathe 5 year model risk: 1.3%. NCI Lifetime model risk: 5.2%. Prior Study Comparison: 07/03/2017 Bilateral MG screening mammo w CAD - 2, [facility]. 12/06/2021 Bilateral MG 3D screening mammo w/cad, [facility]. 12/07/2022 Bilateral MG 3D screening mammo w/cad, [facility]. Tissue Density: The breasts are heterogeneously dense, which may obscure small masses. Findings: Analyzed By CAD. There is no suspicious group of microcalcifications or new suspicious mass in either breast. Overall Assessment: Benign, BI-RAD 2 Management: Screening Mammogram of both breasts in 1 year. . Patient should continue monthly self-breast exams. A clinical breast exam by your physician is recommended on an annual basis. This exam should not preclude additional follow-up of suspicious palpable abnormalities. Note on Kathe scores and lifetime risk: 1. A Kathe score greater than 3% is considered moderate risk. If this is the case, consider specialist referral to assess eligibility for a risk reducing agent. 2. If overall lifetime risk for the development of breast cancer is 20% or higher, the patient may qualify for future screening with alternating mammogram and breast MRI. [facility], , 12/25/2023 11:07 AM. Electronically signed and approved by: Dereje Watts M.D. [facility]
== END | disposition home or self-care (01) ==
LOC: RADMAMWWP 09:08
PROVIDERS: ATTEND Family Medicine
CPT/HCPCS: 77063; 77067